=== PATIENT | male | born 1955 | race Caucasian/White ===

== ENCOUNTER 2022-04-21 11:14 | Emergency (ER) | payer MEDICARE, BC, SELFPAY ==
[2022-04-21 12:14] VITALS: BP 142/100; PULSE 87; RESP 20; TEMP 36.4; O2SAT 94; BMI 35.9
--- NOTE | 2022-04-21 13:14 | ED_ITS ---
HPI - General Adult General Time Seen by Provider: 13:15 Date Seen: 04/21/22 Chief complaint: Shortness of Breath/Dyspnea Stated complaint: Short of breath, covid 5 weeks ago Time Seen by Provider: 04/21/22 13:13 Source: patient and RN notes reviewed Mode of arrival: ambulatory Limitations: no limitations History of Present Illness HPI narrative: Patient is a 66-year-old male coming in with shortness of breath that has been progressive over the last 3 days. He tested positive for COVID in January. Since then he has noted more shortness of breath but is been worse recently. He is wheezing at night now. He does have chronic atrial fibrillation states when he checks his pulse it has been usually in the 60 to 80s. He is chronically anticoagulated for his atrial fibrillation with Eliquis 5 mg twice a day and states he has not missed doses. He admits that he is not really checked his pulse in the last 3 days when he has been feeling more short of breath. He notes that he has had really significant nasal/sinus congestion since COVID. He has been doing 2 Sudafed today otherwise he cannot deal with the congestion. He states he will start getting postnasal drainage. There has been no fevers or chills. No GI symptomatology. No chest pain. He has not noted increased edema, no complaints of increased abdominal distension. Related Data Home Medications Medication Instructions Recorded Confirmed amlodipine 5 mg tablet 5 mg PO DAILY 04/21/22 04/21/22 apixaban 5 mg tablet (Eliquis) 5 mg Q12H 04/21/22 atenolol 50 mg tablet 50 mg Q12H 04/21/22 hydrochlorothiazide 25 mg tablet 25 mg DAILY 04/21/22 irbesartan 300 mg tablet 300 mg 04/21/22 lorazepam 1 mg tablet 1 mg 04/21/22 omeprazole 20 mg capsule,delayed 20 mg BID 04/21/22 release terazosin 5 mg capsule 5 mg 04/21/22 zolpidem 10 mg tablet 10 mg 04/21/22 Previous Rx's Medication Instructions Recorded doxycycline monohydrate 100 mg 100 mg PO BID 10 days #20 tabs 04/21/22 tablet fluticasone propionate 50 1 spray intranasal BID #16 grams 04/21/22 mcg/actuation nasal spray,suspension prednisone 20 mg tablet 20 mg PO BID #10 tabs 04/21/22 Allergies Allergy/AdvReac Type Severity Reaction Status Date / Time No Known Drug Allergies Allergy Verified 04/21/22 12:34 Review of Systems Status of ROS: Reports: 10 or more systems reviewed and unremarkable except as noted in History and below [facility] Social History Smoking Status: Never smoker Do you use any of these nicotine containing products: None Second hand tobacco smoke exposure: No How often do you have a drink containing alcohol: 2-3 times a week How many standard drinks containing alcohol do you have on a typical day: 3 or 4 How often do you have six or more drinks on one occasion: Less than monthly AUDIT-C Alcohol total score: 5 Non-prescribed substance use: denies use service: No Exam Const: Vital Signs, click to edit/add: Vital Signs - 24 hr 04/21/22 12:14 04/21/22 13:42 04/21/22 14:46 Temperature 97.5 F L Pulse Rate [Right Pulse Oximeter] 87 130 H Respiratory Rate 20 16 Blood Pressure [Ri ght Upper Arm] 142/100 H Pulse Oximetry 94 93 94 Oxygen Delivery Me thod Room Air 04/21/22 14:00 04/21/22 13:35 04/21/22 14:00 Temperature Pulse Rate [Right Pulse Oximeter] 105 H 117 H 105 H Respiratory Rate 19 16 Blood Pressure [Ri ght Upper Arm] 109/79 131/95 H 109/79 Pulse Oximetry 96 94 93 Oxygen Delivery Me thod Room Air Room Air Room Air 04/21/22 13:35 Temperature Pulse Rate [Right Pulse Oximeter] 117 H Respiratory Rate 19 Blood Pressure [Ri ght Upper Arm] 131/95 H Pulse Oximetry 94 Oxygen Delivery Me thod Room Air Documenting provider has reviewed patient's vital signs: yes Common normals: no apparent distress, oriented x3, no limitations, healthy appearing, alert and well nourished General appearance: cooperative, comfortable and well kempt Nutritional appearance: obese HENMT: Common normals: normocephalic, head/scalp atraumatic, hearing grossly normal bilaterally, external ears normal, external nose normal, nasal mucous membranes and turbinates normal, moist oral mucous membranes, oropharynx normal, dentition normal and gingiva normal Head and scalp: normocephalic and atraumatic Nose: external nose normal and nasal mucous membranes and turbinates normal External ear: external ears normal Eye: Common normals: PERRL, EOMs intact bilaterally, conjunctivae normal and no scleral icterus Conjunctiva: conjunctiva(e) normal Pupil: PERRL Neck & C-Spine: Common normals: full ROM, no lymphadenopathy, supple, no meningeal signs, no JVD and thyroid normal Thyroid: thyroid normal Chest: Common normals: inspection of chest normal and palpation of chest normal Resp: Common normals: normal respiratory effort, no retractions, no use of accessory muscles and clear to auscultation bilaterally Auscultation: clear to auscultation bilaterally Cardio: Common normals: no JVD and no murmurs Rate: tachycardic Rhythm: abnormal rhythm irregularly irregular GI: Common normals: Normal to inspection, nondistended, normoactive bowel sounds present, soft to palpation, non-tender, no hepatosplenomegaly and no masses Palpation: soft and no hepatosplenomegaly Extremity: Other: Ambulated into the ED Bactrim 7 without any difficulty, no peripheral edema. Neuro: Common normals: oriented x3 Sensorium/orientation: alert Meningeal signs: no meningeal signs Speech: speech normal (Able speak in complete sentences) Psych: Appearance: well kempt Course Course Hospital Course: When patient ambulated from the [facility] back to his room, went into atrial fibrillation with RVR. We will see how he does as cm which is resting he is settling down. Did review with him that his Sudafed very well could be contributing to this and do think he needs to stop the Sudafed. With that said he is complaining about significant sinus congestion, will do sinus CT for him to see if there is any indication for treatment. Will do a full complement of labs, will do chest CT PE protocol. He is on Eliquis and did review with him that would make it very much more unlikely to have pulmonary emboli well on anticoagulants. Given his age, recent COVID, do not feel that we can rely on a D-dimer to singly rule in or out of pulmonary embolus and thus will be oblige to do the study. Will also see the parenchyma of his lungs with this study. If he continues to be in atrial fibrillation with RVR, will need to consider IV rate control medication. Reevaluation(s) Reevaluation #1: Reviewed with patient his CT findings that are suggesting developing pneumonia. Likewise he has got some left frontal sinus change. I think he would benefit from antibiotics and a course of prednisone. He is still jumping anywhere from 90 to max of 130 with his atrial fibrillation. He admits he has been on Sudafed from most 2 months. He is aware he needs to stop this. We discussed hospitalization for his atrial fibrillation with RVR. He would prefer to go home. He takes atenolol 50 mg twice a day. He has a pulse oximeter at home. He will take an extra dose of atenolol when he gets home and then continue with his b.i.d. dosing. He states he is comfortable monitoring his pulse at home and if it continues and shortness of breath is not improving, he will be re- evaluated. I do think this is a reasonable approach. Time: 15:47 Vital Signs Vital signs: Initial Vital Signs Temperature 97.5 F L 04/21/22 12:14 Temperature Source Temporal Artery Scan 04/21/22 12:14 Pulse Rate 87 04/21/22 12:14 Pulse Rhythm 04/21/22 12:14 Respiratory Rate 20 04/21/22 12:14 Blood Pressure 142/100 H 04/21/22 12:14 Blood Pressure Mean 114 04/21/22 12:14 Blood Pressure Position Sitting 04/21/22 12:14 Pulse Oximetry 94 04/21/22 12:14 Oxygen Delivery Method 04/21/22 12:14 Vital Signs Temperature 97.5 F L 04/21/22 12:14 Pulse Rate 87 04/21/22 12:14 Respiratory Rate 20 04/21/22 12:14 Blood Pressure 142/100 H 04/21/22 12:14 Pulse Oximetry 94 04/21/22 12:14 Oxygen Delivery Method 04/21/22 12:14 Temperature 97.5 F L 04/21/22 12:14 Pulse Rate 130 H 04/21/22 14:46 Respiratory Rate 16 04/21/22 14:46 Blood Pressure 109/79 04/21/22 14:00 Pulse Oximetry 94 04/21/22 14:46 Oxygen Delivery Method 04/21/22 14:00 Medical Decision Making Lab Data Lab results reviewed: Yes I reviewed the patient's lab results Labs: Lab Results 04/21/22 04/21/22 04/21/22 Range/Units 13:35 13:35 13:35 WBC 6.04 (4.50-11.00) K/uL RBC 4.13 L (4.30-5.90) m/uL Hgb 12.9 L (13.5-17.5) gm/dL Hct 39.4 (37.0-53.0) % MCV 95 (80-100) fL MCH 31 (26-34) pg MCHC 33 (32-36) gm/dL RDW Coeff of You 15.2 (11.5-15.5) % Plt Count 130 L (140-440) K/uL Neut % (Auto) 73.6 H (42.0-72.0) % Lymph % (Auto) 14.2 L (20-44) % [place] % (Auto) 10.1 (0.0-11.0) % Eos % (Auto) 1.2 (0.0-7.0) % Baso % (Auto) 0.7 (0.0-3.0) % Neut # (Auto) 4.40 (1.7-7.0) K/uL Lymph # (Auto) 0.90 (0.90-2.90) K/uL [place] # (Auto) 0.60 (0.00-0.90) K/UL Eos # (Auto) 0.07 (0.00-0.50) K/uL Baso # (Auto) 0.04 (0.00-0.30) K/uL Abs Immat Gran (auto) 0.01 (0.00-0.30) K/uL D-Dimer Quant (PE/DVT) 0.59 H (0.00-0.50) ug/ml VBG pH (7.32-7.43) VBG pCO2 (40-50) mmHG VBG pO2 (25-47) mmHG VBG HCO3 (21-28) mmol/L Sodium 136 (135-149) mmol/L Potassium 3.7 (3.6-5.1) mmol/L Chloride 103 (96-114) mmol/L Carbon Dioxide 23 (20-32) mmol/L BUN 16 (7-30) mg/dL Creatinine 0.8 (0.5-1.5) mg/dL Estimated Creat Clear 82.20 Estimated GFR 96 ml/min Glucose 113 (60-115) mg/dL Lactate (0.5-1.9) mmol/L Calcium 8.9 (8.4-10.6) mg/dL Magnesium 1.6 (1.5-2.6) mg/dL Total Bilirubin 1.1 (0.1-1.5) mg/dL AST 24 (12-35) U/L ALT 35 (4-50) U/L Alkaline Phosphatase 83 (40-150) U/L Troponin I < 0.01 L (0.01-0.04) ng/mL C-Reactive Protein 0.8 (0.5-1.0) mg/dL NT-Pro-B Natriuret Pep 1400 H (0-125) PG/mL Total Protein 6.8 (6.0-8.3) g/dL Albumin 4.1 (3.3-5.0) g/dL TSH (0.270-4.200) uIU/mL 04/21/22 04/21/22 Range/Units 13:35 13:35 WBC (4.50-11.00) K/uL RBC (4.30-5.90) m/uL Hgb (13.5-17.5) gm/dL Hct (37.0-53.0) % MCV (80-100) fL MCH (26-34) pg MCHC (32-36) gm/dL RDW Coeff of You (11.5-15.5) % Plt Count (140-440) K/uL Neut % (Auto) (42.0-72.0) % Lymph % (Auto) (20-44) % [place] % (Auto) (0.0-11.0) % Eos % (Auto) (0.0-7.0) % Baso % (Auto) (0.0-3.0) % Neut # (Auto) (1.7-7.0) K/uL Lymph # (Auto) (0.90-2.90) K/uL [place] # (Auto) (0.00-0.90) K/UL Eos # (Auto) (0.00-0.50) K/uL Baso # (Auto) (0.00-0.30) K/uL Abs Immat Gran (auto) (0.00-0.30) K/uL D-Dimer Quant (PE/DVT) (0.00-0.50) ug/ml VBG pH 7.434 H (7.32-7.43) VBG pCO2 39 L (40-50) mmHG VBG pO2 74.9 H (25-47) mmHG VBG HCO3 26 (21-28) mmol/L Sodium (135-149) mmol/L Potassium (3.6-5.1) mmol/L Chloride (96-114) mmol/L Carbon Dioxide (20-32) mmol/L BUN (7-30) mg/dL Creatinine (0.5-1.5) mg/dL Estimated Creat Clear Estimated GFR ml/min Glucose (60-115) mg/dL Lactate 1.1 (0.5-1.9) mmol/L Calcium (8.4-10.6) mg/dL Magnesium (1.5-2.6) mg/dL Total Bilirubin (0.1-1.5) mg/dL AST (12-35) U/L ALT (4-50) U/L Alkaline Phosphatase (40-150) U/L Troponin I (0.01-0.04) ng/mL C-Reactive Protein (0.5-1.0) mg/dL NT-Pro-B Natriuret Pep (0-125) PG/mL Total Protein (6.0-8.3) g/dL Albumin (3.3-5.0) g/dL TSH 1.870 (0.270-4.200) uIU/mL Imaging Data CT scan - chest: Attestation: I have reviewed the pertinent imaging results. Radiologist's impression: Patient: LOUIE CONNOR Facility:?[facility] Patient ID:?[id number] Site Patient ID:?[id number]. Site :?[id number] Study:?CT Chest Angio W/ 95CC ISOVUE-370 PE PROTOCOL-04/21/2022 2:46:56 PM Ordering Physician:Nelida Louis Final Report: Indication: Shortness of breath, recent barrera virus infection, wheezing Technique: Volumetric multidetector CT images of the chest were obtained after the administration of IV contrast. 95 cc Isovue 370 low osmolar intravenous contrast Comparison: None available. Findings: The thoracic inlet and thyroid gland are unremarkable. The thoracic aorta is nonaneurysmal. There is no central filling defect to suggest pulmonary embolism. There are enlarged mediastinal and hilar lymph nodes commensurate with reactive changes. There is mild moderate central bronchial thickening and mucoid impaction of the lower lobe bronchi. There are bibasilar pleural effusions with moderate interlobular septal thickening with basilar atelectasis and airspace opacities likely representing superimposed infiltrates. There is no evidence of pulmonary mass or suspicious pulmonary nodule. The partially visualized upper abdomen demonstrates mild hepatic enlargement and calcified gallstones within the gallbladder fossa. The thoracic vertebral body heights are grossly maintained with mild straightening of the normal thoracic kyphosis. There is no significant spondylolisthesis or displaced fractures. Impression: Mild to moderate central bronchial thickening with mucoid impaction of the lower lobe bronchi with bibasilar effusions and interlobular septal thickening commensurate with pulmonary edema with minimal basilar airspace opacities likely representing infiltrates. No evidence of pulmonary embolus. Please note that all CT scans at this facility use dose modulation, iterative reconstruction, and/or weight-based dosing when appropriate to reduce radiation dose to as low as reasonably achievable. Dictated by Alexis Greene MD @ 04/21/2022 3:34:32 PM (Electronic Signature) CT sinus: Attestation: I have reviewed the pertinent imaging results. Radiologist's impression: Patient: LOUIE CONNOR Facility:?[facility] Patient ID:?[id number] Site Patient ID:?[id number] Site :?[id number] Study:?CT Sinus W/O-04/21/2022 2:43:06 PM Ordering Physician:?Ernst Louis Final Report: INDICATION: Chronic post COVID congestion. TECHNIQUE: CT sinus without contrast. COMPARISON: None. FINDINGS: Paranasal sinuses: Minimal fluid or mucosal thickening in the left frontal sinus. Remainder of the paranasal sinuses are clear. Left mastoid air cell effusion also present. The ostiomeatal units are patent. The fovea ethmoidalis and orbital marquis are intact. The nasal septum is midline and intact. The nasal turbinates are normal. Orbits and globes: Unremarkable. Visualized intracranial contents: Unremarkable. Soft tissues: Unremarkable. IMPRESSION: Minimal signs of inflammation in the left frontal sinus. Remainder of the paranasal sinuses are clear. An effusion is also present in the left mastoid air cells. Please note that all CT scans at this facility use dose modulation, iterative reconstruction, and/or weight-based dosing when appropriate to reduce radiation dose to as low as reasonably achievable. Dictated by Ye Allen MD @ 04/21/2022 3:35:54 PM ECG Data Attestation: I personally reviewed and interpreted this ECG as follows: (Atrial fibrillation with rapid ventricular response, 110 beats per minute. No definitive ischemia seen. QT corrected 511 milliseconds) Prior ECG tracings: not available for review Critical Care Time Critical Care Time Critical Care Time: No Discharge Plan Discharge Clinical Impression: Sinusitis, acute frontal, Community acquired pneumonia, Chronic atrial fibrillation with rapid ventricular response Condition: Stable Instructions: A-fib (Atrial Fibrillation) (ED), Sinusitis (ED), Community Acquired Pneumonia (ED) Additional Instructions: Start doxycycline and take as prescribed. Take prednisone as well, take with food to protect her stomach. You absolutely need to stop the Sudafed, can be contributing to your rapid rhythm with her atrial fibrillation. Start Flonase and can use scheduled for about 2 weeks, can see after that if you still need it. Monitor pulse rate, if it is not improving over the next few days with cessation of the Sudafed, follow up in clinic or back in the ER if it is associated with shortness of breath. You can take an extra dose of atenolol today when you get home. Activity Level: Activity as Tolerated Prescriptions: New doxycycline monohydrate 100 mg tablet 100 mg PO BID 10 Days Qty: 20 0RF prednisone 20 mg tablet 20 mg PO BID Qty: 10 0RF fluticasone propionate 50 mcg/actuation spray,suspension 1 spray intranasal BID Qty: 16 1RF Rx Instructions: administer into each nostril No Action Eliquis 5 mg tablet 5 mg Q12H Label Comments: TAKE ONE TABLET BY MOUTH TWICE DAILY amlodipine 5 mg tablet 5 mg PO DAILY Label Comments: TAKE ONE TABLET BY MOUTH ONE TIME DAILY atenolol 50 mg tablet 50 mg Q12H Label Comments: TAKE ONE TABLET BY MOUTH TWICE DAILY hydrochlorothiazide 25 mg tablet 25 mg DAILY Label Comments: TAKE ONE TABLET BY MOUTH ONE TIME DAILY irbesartan 300 mg tablet 300 mg Label Comments: TAKE ONE TABLET BY MOUTH ONE TIME DAILY lorazepam 1 mg tablet 1 mg Label Comments: Take 1 Tablet (1 mg) by mouth 2 times daily if needed for Anxiety or Sleep. omeprazole 20 mg capsule,delayed release(DR/EC) 20 mg BID Label Comments: TAKE TWO CAPSULE BY MOUTH TWICE DAILY BEFORE MEALS terazosin 5 mg capsule 5 mg Label Comments: TAKE TWO CAPSULE BY MOUTH DAILY AT BEDTIME zolpidem 10 mg tablet 10 mg Label Comments: TAKE ONE TABLET BY MOUTH ONE TIME DAILY AT BEDTIME Follow Up/Referrals: Ebenezer Powell MD [Primary Care Provider] - Stand Alone Forms: [facility] Inst[facility]
--- NOTE | 2022-04-21 13:32 | CRLHL7_ITS ---
For Patients: As a result of the Cures Act, medical imaging exams and procedure reports are released immediately into your electronic medical record. You may view this report before your referring provider. If you have questions, please contact your health care provider. Indication: Shortness of breath, recent barrera virus infection, wheezing Technique: Volumetric multidetector CT images of the chest were obtained after the administration of IV contrast. 95 cc Isovue 370 low osmolar intravenous contrast Comparison: None available. Findings: The thoracic inlet and thyroid gland are unremarkable. The thoracic aorta is nonaneurysmal. There is no central filling defect to suggest pulmonary embolism. There are enlarged mediastinal and hilar lymph nodes commensurate with reactive changes. There is mild moderate central bronchial thickening and mucoid impaction of the lower lobe bronchi. There are bibasilar pleural effusions with moderate interlobular septal thickening with basilar atelectasis and airspace opacities likely representing superimposed infiltrates. There is no evidence of pulmonary mass or suspicious pulmonary nodule. The partially visualized upper abdomen demonstrates mild hepatic enlargement and calcified gallstones within the gallbladder fossa. The thoracic vertebral body heights are grossly maintained with mild straightening of the normal thoracic kyphosis. There is no significant spondylolisthesis or displaced fractures. Impression: Mild to moderate central bronchial thickening with mucoid impaction of the lower lobe bronchi with bibasilar effusions and interlobular septal thickening commensurate with pulmonary edema with minimal basilar airspace opacities likely representing infiltrates. No evidence of pulmonary embolus. Please note that all CT scans at this facility use dose modulation, iterative reconstruction, and/or weight-based dosing when appropriate to reduce radiation dose to as low as reasonably achievable. Dictated by Alexis Greene MD @ 04/21/2022 3:34:32 PM (Electronically Signed)
--- NOTE | 2022-04-21 13:32 | CRLHL7_ITS ---
For Patients: As a result of the Century Cures Act, medical imaging exams and procedure reports are released immediately into your electronic medical record. You may view this report before your referring provider. If you have questions, please contact your health care provider. INDICATION: Chronic post COVID congestion. TECHNIQUE: CT sinus without contrast. COMPARISON: None. FINDINGS: Paranasal sinuses: Minimal fluid or mucosal thickening in the left frontal sinus. Remainder of the paranasal sinuses are clear. Left mastoid air cell effusion also present. The ostiomeatal units are patent. The fovea ethmoidalis and orbital marquis are intact. The nasal septum is midline and intact. The nasal turbinates are normal. Orbits and globes: Unremarkable. Visualized intracranial contents: Unremarkable. Soft tissues: Unremarkable. IMPRESSION: Minimal signs of inflammation in the left frontal sinus. Remainder of the paranasal sinuses are clear. An effusion is also present in the left mastoid air cells. Please note that all CT scans at this facility use dose modulation, iterative reconstruction, and/or weight-based dosing when appropriate to reduce radiation dose to as low as reasonably achievable. Dictated by Ye Allen MD @ 04/21/2022 3:35:54 PM (Electronically Signed)
[2022-04-21 13:35] VITALS: BP 131/95; PULSE 117; RESP 19; O2SAT 94
[2022-04-21 13:42] VITALS: O2SAT 93
[2022-04-21 13:42] LABS: HCO3 VBG 26 mmol/L (21-28); Lactate* 1.1 mmol/L (0.5-1.9); PCO2 VBG 39 mmHG (40-50); PO2 VBG 74.9 mmHG (25-47); pH VBG 7.434 (7.32-7.43)
[2022-04-21 13:45] LABS: Basophils Absolute Auto 0.04 K/uL (0.00-0.30); Basophils Percent Auto 0.7 % (0.0-3.0); Eosinophils Absolute Auto 0.07 K/uL (0.00-0.50); Eosinophils Percent Auto 1.2 % (0.0-7.0); Hematocrit 39.4 % (37.0-53.0); Hemoglobin* 12.9 gm/dL (13.5-17.5); Immature Granulocytes Abs Auto 0.01 K/uL (0.00-0.30); Lymphocytes Percent Auto 14.2 % (20-44); Mean Corpuscular HGB Conc 33 gm/dL (32-36); Mean Corpuscular Hemoglobin 31 pg (26-34); Mean Corpuscular Volume 95 fL (80-100); Monocytes Percent Auto 10.1 % (0.0-11.0); Neutrophils Percent Auto 73.6 % (42.0-72.0); Platelet Count* 130 K/uL (140-440); RDW Coefficient of Variation % 15.2 % (11.5-15.5); Red Blood Count 4.13 m/uL (4.30-5.90); White Blood Count* 6.04 K/uL (4.50-11.00)
[2022-04-21 13:47] LABS: Slide Review Reflex No
[2022-04-21 14:00] VITALS: BP 109/79; PULSE 105; RESP 16; O2SAT 93; O2SAT 96
[2022-04-21 14:02] LABS: Albumin* 4.1 g/dL (3.3-5.0); Chloride* 103 mmol/L (96-114); Sodium* 136 mmol/L (135-149)
[2022-04-21 14:03] LABS: Potassium* 3.7 mmol/L (3.6-5.1)
[2022-04-21 14:05] LABS: Bilirubin Total* 1.1 mg/dL (0.1-1.5); Creatinine* 0.8 mg/dL (0.5-1.5); Estimated Glomerular Filt Rate 96 ml/min
[2022-04-21 14:06] LABS: Alanine Aminotransferase* 35 U/L (4-50); Alkaline Phosphatase* 83 U/L (40-150); Aspartate Amino Transferase* 24 U/L (12-35); Blood Urea Nitrogen* 16 mg/dL (7-30); Calcium* 8.9 mg/dL (8.4-10.6); Carbon Dioxide* 23 mmol/L (20-32); Glucose* 113 mg/dL (60-115); Magnesium* 1.6 mg/dL (1.5-2.6); Total Protein* 6.8 g/dL (6.0-8.3)
[2022-04-21 14:09] LABS: C Reactive Protein* 0.8 mg/dL (0.5-1.0)
[2022-04-21 14:15] LABS: NT Pro B Type NatriureticPept* 1400 PG/mL (0-125)
[2022-04-21 14:19] LABS: Troponin I* < 0.01 ng/mL (0.01-0.04)
[2022-04-21 14:25] LABS: D Dimer Quantitative* 0.59 ug/ml (0.00-0.50)
[2022-04-21 14:46] VITALS: PULSE 130; RESP 16; O2SAT 94
[2022-04-21 16:15] VITALS: BP 127/91; PULSE 109; RESP 18; O2SAT 96
--- OUTSIDE RECORDS SUMMARY | 2022-04-25 13:15 | XMS_ITS | Clinical Summary ---
:1955 Author Organization [facility] [place] [address] Care Team Providers Name Role Phone Ebenezer Powell MD Primary Care Provider [phone] Allergies Active Allergy Reactions Severity Noted Date Comments Atorvastatin Other - Describe In ankle pa in and Comment Field swelling Lisinopril Throat High 10/10/2007 Swelling/Closing, Angioedema Sulfamethoxazole-Trimeth GI Upset Medium 08/21/2014 A t wo week course oprim ripped up my stomach. Medications Medication Sig Dispensed Refills Start End Status Date Date MULTIVITAMIN TAB take 1 tablet by 0 10/10/19 Active oral route once 08 daily with food medication order ComforTone stool 0 08/16/19 Active composerIndications: softener/laxativ 15 Constipation e - take 2 daily as needed for constipation albuterol HFA Inhale 1-2 Puffs 1 Each 1 09/09/19 Active (PRO-AIR; VENTOLIN; by mouth every 4 21 PROVENTIL) 90 hours if needed. mcg/actuation inhalerIndications: Moderate persistent asthma without complication fluticasone (50 mcg Inhale 2 Sprays 16 g 11 09/17/19 Active per actuation) nasal into both 21 solution nostrils once (FLONASE)Indications: daily if needed Acute non-recurrent for Rhinitis. maxillary sinusitis glucosamine-chondroiti Take 1 Capsule 0 09/17/19 Active n, 500-400 mg, by mouth once 21 (COSAMIN DS 500/400) daily. 500-400 mg capIndications: Hip pain, right, Neck pain, chronic [id number]-Fish Take 2 Capsules 0 09/17/19 Active Oil (FISH OIL) 1,000 by mouth once 21 mg (120 mg-180 mg) daily. capIndications: Neck pain, chronic hydrocortisone 1 % Apply topically 0 10/22/19 Active creamIndications: to affected 21 Encounter for area(s) 4 times cardioversion daily if needed procedure for Other (Specify) (Apply as needed to affected skin irritation. Send home with patient.). hydroCHLOROthiazide Take 1 Tablet 90 tablet. 3 09/17/19 Active (HCTZ) 25 mg (25 mg) by mouth 22 tabletIndications: once daily. Essential hypertension hyoscyamine (LEVSIN) Take 1 Tablet 360 tablet. 3 09/17/19 Active 0.125 mg (0.125 mg) by 22 tabletIndications: mouth every 4 Other irritable bowel hours if needed syndrome for Colic. irbesartan (Avapro) Take 1 Tablet 90 Tablet 3 09/17/19 Active 300 mg (300 mg) by 22 tabletIndications: mouth once Essential hypertension daily. tadalafiL (CIALIS) 10 Take 1 Tablet 30 tablet. 5 09/17/19 Active mg tabletIndications: (10 mg) by mouth 22 Other male erectile once daily if dysfunction needed (Erectile dysfunction). Take 30 minutes before sexual activity. terazosin (HYTRIN) 5 Take 2 Capsules 180 Capsule 3 09/17/19 Active mg capsuleIndications: (10 mg) by mouth 22 Essential at bedtime. hypertension, Chronic prostatitis zolpidem (AMBIEN) 10 Take 1 Tablet 90 Tablet 3 09/17/19 Active mg tabletIndications: (10 mg) by mouth 22 Other insomnia at bedtime. amLODIPine (NORVASC) 5 Take 1 Tablet (5 90 Tablet 3 09/17/19 Active mg tabletIndications: mg) by mouth 22 Essential hypertension once daily. apixaban (Eliquis) 5 Take 1 Tablet (5 180 Tablet 3 09/17/19 Active mg tabletIndications: mg) by mouth 2 22 Persistent atrial times daily. fibrillation (HC) atenoloL (TENORMIN) 50 Take 1 Tablet 180 tablet. 3 09/17/19 Active mg tabletIndications: (50 mg) by mouth 22 Essential 2 times daily. hypertension, Persistent atrial fibrillation (HC) ondansetron (ZOFRAN) 4 Take 1-2 Tablets 30 tablet. 3 09/17/19 Active mg tabletIndications: (4-8 mg) by 22 Nausea mouth every 8 hours if needed for Nausea/Vomiting. traMADoL (ULTRAM) 50 TAKE ONE TABLET 60 Tablet 0 09/23/19 Active mg tabletIndications: BY MOUTH EVERY 22 Primary osteoarthritis SIX HOURS of right knee NEEDED FOR PAIN omeprazole (PRILOSEC) Take 2 Capsules 360 capsule. 3 10/21/19 Active 20 mg Delayed-Release (40 mg) by mouth 22 capsuleIndications: 2 times daily Gastroesophageal before meals. reflux disease with esophagitis without hemorrhage, Bradley's esophagus with dysplasia HYDROcodone-acetaminop Take 1 Tablet by 36 Tablet 0 12/04/19 Active hen (NORCO) 5-325 mg mouth every 4 22 per tabletIndications: hours if needed Primary osteoarthritis for Pain. Max of right knee acetaminophen dose: 4000 mg in 24 hrs. LORazepam (ATIVAN) 1 Take 1 Tablet (1 60 Tablet 5 04/06/20 Active mg tabletIndications: mg) by mouth 2 Anxiety times daily if needed for Anxiety or Sleep. LORazepam (ATIVAN) 1 Take 1 Tablet (1 60 Tablet 5 09/17/19/ mg tabletIndications: mg) by mouth 2021 Anxiety once daily if needed for Anxiety or Sleep. 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 Colon polyps 09/08/2014 Overview: No polyps on 08/29/14 colonoscopy Repeat in 3 years Varicose veins 06/21/2014 Diverticulosis 06/21/2014 BPH (benign prostatic hypertrophy) with urinary obstru ction 05/25/2013 Insomnia 04/26/2013 Impaired fasting glucose 02/25/2009 Esophageal reflux 10/10/2007 Overview: EGD 12/2010 hiatal hernia Unspecified essential hypertension Pure hypercholesterolemia Obesity, unspecified Encounters Date Type Specialty Care Team Description 04/06/2022 RefEbenezer Nichole MD Re fill Request (Lorazepam) 02/22/2022 Refill Ebenezer Powell MD Re fill Request (AMLODIPINE BESYLATE ORAL T ABLET 5MG ) from Last 3 Months Immunizations Name Administration Dates Next Due COVID-19 vaccine (DealTraction 07/01/2021, 10/07/2020, 30mcg/0.3mL) PF, MDV Influenza, High-dose Inactivated 05/09/2016 Influenza, High-dose Quadrivalent 05/26/2021 Inactivated Influenza, IIV3 (Age >=3 years) 04/12/2013, 04/29/2010, 12/10/2005 Influenza, IIV4 06/08/2017, 06/21/2014 Influenza, IIV4 (=>6mos) MDV 05/27/2016 Pneumococcal conj 13-Valent (Prevnar 13) 09/08/2020, 019 Td (Age >=7 Years) 11/22/2018 Tdap 10/10/2007 Zoster (Zostavax-ZVL, live) 06/21/2014, 07/11/2012 Family History Medical History Relation Name Comments Hypertension Brother 1 Other Brother 2 obese Alcohol/Drug Father Cancer Father lip CA from TOB Hyperlipidemia Father Other Father CO at 55 yo Arthritis Mother Cancer-colon Mother dx at 85 Relation Name Status Comments Brother 1 Brother 2 Father (Age 56) Mother Alive Social History Tobacco Use Types Packs/Day Years Used Date Never Smoker Smokeless Tobacco: Never Used Tobacco Cessation: Counseling Given: Yes Alcohol Use Standard Drinks/Week Comments Yes 3 (1 standard drink = 0.6 oz pure alcoho l) 12 beers a month Sex Assigned at Date Recorded Not on file Obstetrics History Last Filed Vital Signs Vital Sign Reading Time Taken Comments Blood Pressure 127/81 12/03/2021 10:06 AM CDT Pulse 80 12/03/2021 10:06 AM CDT Temperature 36.6 ??C (97.9 ??F) 12/03/2021 10:06 AM CDT Respiratory Rate 18 10/21/2020 2:29 PM CDT Oxygen Saturation 98% 12/03/2021 10:06 AM CDT Inhaled Oxygen Concentration - - Weight 126.9 kg (279 lb 12.8 oz) 12/03/2021 10:06 AM sh oes on CDT Height 184.2 cm (6' 0.5) 10/20/2021 10:59 AM CDT Body Mass Index 37.43 10/20/2021 10:59 AM CDT Plan of Treatment Health Maintenance Due Date Last Done Comments Zoster (shingles) series for age 0208/16/2014 06/21/2014, 07/2012 50+ (2 of 3) Colonoscopy through age 75 08/29/2019 08/29/2014, 1, 12/14/2010 COVID-19 vaccine series (4 - 08/26/2021 07/01/2021, 021, Booster for Pfizer series) 09/16/2020 Pneumococcal series for age 65+ (2 09/08/2021 09/08/2020, 0 11/22/2018 - PPSV23 or PCV20) Influenza for age 65+ 03/11/2022 05/26/2021, 06/08/2017, 05/27/2016, Additional history exists Medicare Wellness for age 65+ 09/16/2022 09/16/2021, 2020, 11/22/2018 Depression screening for age 12+ 09/17/2022 09/17/2021, 03/2022, 09/16/2021, Additional history exists BMI (ht and wt on same day) for 10/20/2022 10/20/2021, 03/0 03/2022, age 18+ 08/05/2021, Additional history exists Lipids for age 45-75 09/16/2026 09/16/2021, 08/25/2020, 12/13/2019, Additional history exists Tetanus booster 11/22/2028 11/22/2018, 10/10/2007 Tdap Completed 10/10/2007 Hepatitis C screening for age Completed 08/01/2014 [age] Results Not on filefrom Last 3 Months Insurance Payer Benefit Plan / Subscriber ID Effective Dates Phone Addre ss Type Group MEDICARE PART A MEDICARE PART A [id number] 2018-Presharinder ATTN: CLAIMS - HB USE ONLY HB ONLY t [address] [place] [address] MEDICARE PART B MEDICARE PART B [id number] 2018-Presen ATTN: CLAIMS - HB USE ONLY HB ONLY t [address] [place] [address] MEDICA MEDICA CHOICE [id number] 2013-Presen [address] [address] [place] [address] MEDICARE - PB MEDICARE PB [id number] 2018-Presen ATTN : CLAIMS USE ONLY ONLY t [address] [place] [address] BLUE CROSS BLUE CROSS OF [id number] 2018-Presen [address] [place] [address] Alex Barraza Personal/Family Self 1955 [id number] [phone] [place] [employer] [id number] Advance Directives Latest Code Status on File Code Status Date Activated Date Inactivated Comments Full Code 10/21/2020 12:01 PM 10/21/2020 4:58 PM Code Status Discussion: Not Discussed Care Teams Fruit Trimmer Relationship Specialty Start Date End Date Ebenezer Powell MD PCP - General 03/25/[address] [place] [address]
== END 2022-04-21 16:15 | disposition home or self-care (01) ==
PROVIDERS: Emergency Provider Family Medicine; PCP Family Medicine
DX: J18.9 Pneumonia, unspecified organism (principal); I48.20 Chronic atrial fibrillation, unspecified; J32.9 Chronic sinusitis, unspecified
CPT/HCPCS: 36415; 70486; 71260; 80053; 82803; 83605; 83735; 83880; 84443; 84484; 85025; 85379; 86140; 93005; 94761; 99284; 99285; Q9967

== ENCOUNTER 2022-07-26 11:56 | Inpatient (IN) | payer MEDICARE, BC, SELFPAY ==
[2022-07-26] VITALS (35 sets, daily range): BP systolic 134–160; BP diastolic 87–143; PULSE 78–134; RESP 16–22; TEMP 36.5–36.7; O2SAT 89–96; BMI 38.8; BMI 40.1
--- NOTE | 2022-07-26 12:27 | ED.SOB ---
HPI - SOB/Dyspnea General Time Seen by Provider: 12:27 Date Seen: 07/26/22 Chief Complaint: Shortness of Breath/Dyspnea Stated Complaint: shortness of breath Time Seen by Provider: 07/26/22 12:27 Source: patient, RN notes reviewed and old records reviewed Mode of arrival: ambulatory Limitations: no limitations History of Present Illness HPI Narrative: Lincoln is a very pleasant 66-year-old gentleman with history of atrial fibrillation on anticoagulation, hypertension, obesity who comes to the emergency room for evaluation regarding continuing shortness of breath especially with exertion since having COVID in February. Patient notes that he has had multiple rounds of antibiotics in the treatment of pneumonia as well as sinusitis with variable effect. He notes he now is getting shortness of breath with any sort of activity. He does state that his heart rate is elevated and he usually blamed this on Sudafed but he has not taken any Sudafed today but did have some Excedrin. He denies chest pain. He has had intermittent cough and occasional sore throats in the past couple months. He denies having any fevers. He does note that he has sinus pressure today. He states that in the past he has been treated with pneumonia with antibiotics it at which time he improved. The following time he was treated with antibiotics for sinusitis but did not get better and when he was seen in June by his primary MD he did not receive any medication. He denies calf tenderness or increasing lower extremity edema. He notes that he has had wheezing since having COVID in February. He did trial some Advair which belongs to his and states he felt it made him a little bit better. He has not had any vomiting. He did have some diarrhea but that has since resolved. Related Data Home Medications Medication Instructions Recorded Confirmed amlodipine 5 mg tablet 5 mg PO DAILY 04/21/22 07/26/22 apixaban 5 mg tablet (Eliquis) 5 mg PO BID 04/21/22 07/26/22 atenolol 50 mg tablet 50 mg PO BID 04/21/22 07/26/22 hydrochlorothiazide 25 mg tablet 25 mg PO DAILY 04/21/22 07/26/22 irbesartan 300 mg tablet 300 mg PO DAILY 04/21/22 07/26/22 lorazepam 1 mg tablet 1 mg PO BID PRN 04/21/22 07/26/22 omeprazole 20 mg capsule,delayed 20 mg PO BID 10/12/22 01/16/23 release terazosin 5 mg capsule 10 mg PO HS 04/21/22 07/26/22 zolpidem 10 mg tablet 10 mg PO HS 04/21/22 07/26/22 fluticasone propionate 50 1 spray intranasal DAILY PRN 07/26/22 07/26/22 mcg/actuation nasal spray,suspension montelukast 10 mg tablet 10 mg PO HS 07/26/22 07/26/22 Allergies Allergy/AdvReac Type Severity Reaction Status Date / Time atorvastatin Allergy Verified 07/26/22 15:04 lisinopril Allergy Verified 07/26/22 15:04 Review of Systems Status of ROS: Reports: 10 or more systems reviewed and unremarkable except as noted in History and below Const: Denies: fever or chills Eyes: Denies: change in vision ENMT: Reports: throat pain (Occasionally not today); Denies: neck pain or difficulty swallowing Cardio: Reports: shortness of breath with exertion and shortness of breath when lying down; Denies: chest pain, palpitations, edema, swelling of feet/ankles or lightheadedness Resp: Reports: shortness of breath GI: Denies: abdominal pain, nausea, vomiting or difficulty swallowing : Denies: painful urination or urinary frequency Musculo: Denies: neck pain Integ/Breast: Denies: rash Neuro: Denies: headache PFSH PFSH Medical History Atrial flutter with rapid ventricular response Cardiac arrhythmia Elevated cholesterol GERD (gastroesophageal reflux disease) Hypertension Surgical History Status post right hip replacement (11/05/21) Social History Smoking Status: Never smoker Do you use any of these nicotine containing products: None Second hand tobacco smoke exposure: No How often do you have a drink containing alcohol: 2-3 times a week How many standard drinks containing alcohol do you have on a typical day: 3 or 4 How often do you have six or more drinks on one occasion: Less than monthly AUDIT-C Alcohol total score: 5 Non-prescribed substance use: denies use service: No Exam Narrative: Exam Narrative: Patient is alert and oriented. Nontoxic in appearance. He is lying in a semi recumbent position in room 3. Eyes are clear and oral cavity with moist mucous membranes. Heart with a tachycardic rate an abnormally abnormal rhythm. Abdomen is obese soft nontender. Lower extremities with scant peripheral edema. No calf tenderness. Const: Vital Signs, click to edit/add: Vital Signs - 24 hr 07/26/22 12:18 07/26/22 12:33 07/26/22 12:39 Temperature 97.7 F 97.7 F Pulse Rate 86 Pulse Rate [Femora l] 90 Pulse Rate [Right Pulse Oximeter] 90 Respiratory Rate 22 20 Blood Pressure Blood Pressure [Ri ght Upper Arm] 134/122 H 134/122 H Pulse Oximetry 93 92 93 Oxygen Delivery Me thod Room Air Room Air 07/26/22 12:44 07/26/22 12:45 07/26/22 13:00 Temperature Pulse Rate 114 H 89 Pulse Rate [Femora l] Pulse Rate [Right Pulse Oximeter] Respiratory Rate Blood Pressure Blood Pressure [Ri ght Upper Arm] Pulse Oximetry 92 93 93 Oxygen Delivery Me thod 07/26/22 13:02 07/26/22 13:15 07/26/22 13:30 Temperature Pulse Rate 84 87 81 Pulse Rate [Femora l] Pulse Rate [Right Pulse Oximeter] Respiratory Rate Blood Pressure 142/90 H Blood Pressure [Ri ght Upper Arm] Pulse Oximetry 94 90 93 Oxygen Delivery Me thod 07/26/22 13:32 07/26/22 13:45 07/26/22 14:00 Temperature Pulse Rate 92 98 100 Pulse Rate [Femora l] Pulse Rate [Right Pulse Oximeter] Respiratory Rate Blood Pressure 147/113 H Blood Pressure [Ri ght Upper Arm] Pulse Oximetry 92 93 92 Oxygen Delivery Me thod 07/26/22 14:02 07/26/22 14:15 07/26/22 14:30 Temperature Pulse Rate 98 84 126 H Pulse Rate [Femora l] Pulse Rate [Right Pulse Oximeter] Respiratory Rate Blood Pressure 144/87 H Blood Pressure [Ri ght Upper Arm] Pulse Oximetry 94 92 90 Oxygen Delivery Me thod 07/26/22 14:32 07/26/22 14:45 07/26/22 15:04 Temperature Pulse Rate 99 99 134 H Pulse Rate [Femora l] Pulse Rate [Right Pulse Oximeter] Respiratory Rate Blood Pressure 137/115 H Blood Pressure [Ri ght Upper Arm] Pulse Oximetry 90 92 90 Oxygen Delivery Me thod 07/26/22 15:05 07/26/22 15:15 07/26/22 15:30 Temperature Pulse Rate 110 H 88 89 Pulse Rate [Femora l] Pulse Rate [Right Pulse Oximeter] Respiratory Rate Blood Pressure 160/143 H Blood Pressure [Ri ght Upper Arm] Pulse Oximetry 92 94 94 Oxygen Delivery Me thod 07/26/22 15:32 07/26/22 15:45 07/26/22 16:00 Temperature Pulse Rate 78 88 99 Pulse Rate [Femora l] Pulse Rate [Right Pulse Oximeter] Respiratory Rate Blood Pressure 139/110 H Blood Pressure [Ri ght Upper Arm] Pulse Oximetry 96 89 90 Oxygen Delivery Me thod 07/26/22 16:02 07/26/22 16:15 07/26/22 16:30 Temperature Pulse Rate 98 96 95 Pulse Rate [Femora l] Pulse Rate [Right Pulse Oximeter] Respiratory Rate Blood Pressure 146/96 H Blood Pressure [Ri ght Upper Arm] Pulse Oximetry 94 93 93 Oxygen Delivery Me thod 07/26/22 16:32 07/26/22 16:45 07/26/22 17:00 Temperature Pulse Rate 103 H 98 86 Pulse Rate [Femora l] Pulse Rate [Right Pulse Oximeter] Respiratory Rate Blood Pressure 153/89 H Blood Pressure [Ri ght Upper Arm] Pulse Oximetry 93 93 93 Oxygen Delivery Me thod 07/26/22 17:02 07/26/22 17:03 Temperature Pulse Rate 90 78 Pulse Rate [Femora l] Pulse Rate [Right Pulse Oximeter] Respiratory Rate Blood Pressure 141/108 H Blood Pressure [Ri ght Upper Arm] Pulse Oximetry 94 95 Oxygen Delivery Me thod Documenting provider has reviewed patient's vital signs: yes Course Vital Signs Vital signs: Initial Vital Signs Temperature 97.7 F 07/26/22 12:18 Temperature Source Temporal Artery Scan 07/26/22 12:18 Pulse Rate 90 07/26/22 12:18 Pulse Rhythm 07/26/22 12:18 Respiratory Rate 22 07/26/22 12:18 Blood Pressure 134/122 H 07/26/22 12:18 Blood Pressure Mean 126 07/26/22 12:18 Pulse Oximetry 93 07/26/22 12:18 Oxygen Delivery Method 07/26/22 12:18 Vital Signs Temperature 97.7 F 07/26/22 12:18 Pulse Rate 90 07/26/22 12:18 Respiratory Rate 22 07/26/22 12:18 Blood Pressure 134/122 H 07/26/22 12:18 Pulse Oximetry 93 07/26/22 12:18 Oxygen Delivery Method 07/26/22 12:18 Temperature 97.7 F 07/26/22 12:33 Pulse Rate 78 07/26/22 17:03 Respiratory Rate 20 07/26/22 12:33 Blood Pressure 141/108 H 07/26/22 17:02 Pulse Oximetry 95 07/26/22 17:03 Oxygen Delivery Method 07/26/22 12:33 MDM - SOB/Dyspnea MDM Narrative Medical decision making narrative: 1. Congestive heart failure-patient is noted to have bilateral pleural effusion on CT. ProBNP is it 1900 which is an increase from April at 1420. Patient given Lasix 40 mg IV. Patient will be admitted to the floor of our hospital for diuresis and echocardiogram. 2. AFib with RVR-likely secondary to 1. Currently on atenolol 150 mg b.i.d.. This did appear to improve during patient's time here without any pharmacological intervention. 3. Sinus pressure-head CT without evidence of sinusitis. 4. Disposition-admit to the floor under the care of Dr. Najera. Medical Records Attestation: I reviewed the patient's medical records. Lab Data Attestation: I reviewed the patient's lab results. Labs: Lab Results 07/26/22 07/26/22 07/26/22 Range/Units 13:05 13:06 13:06 WBC 6.47 (4.50-11.00) K/uL RBC 3.97 L (4.30-5.90) m/uL Hgb 12.6 L (13.5-17.5) gm/dL Hct 38.8 (37.0-53.0) % MCV 98 (80-100) fL MCH 32 (26-34) pg MCHC 33 (32-36) gm/dL RDW Coeff of You 13.4 (11.5-15.5) % Plt Count 148 (140-440) K/uL Neut % (Auto) 76.0 H (42.0-72.0) % Lymph % (Auto) 12.5 L (20-44) % Whitman % (Auto) 9.4 (0.0-11.0) % Eos % (Auto) 1.4 (0.0-7.0) % Baso % (Auto) 0.5 (0.0-3.0) % Neut # (Auto) 4.90 (1.7-7.0) K/uL Lymph # (Auto) 0.80 L (0.90-2.90) K/uL Whitman # (Auto) 0.60 (0.00-0.90) K/UL Eos # (Auto) 0.09 (0.00-0.50) K/uL Baso # (Auto) 0.03 (0.00-0.30) K/uL Sodium 140 (135-149) mmol/L Potassium 3.9 (3.6-5.1) mmol/L Chloride 110 (96-114) mmol/L Carbon Dioxide 27 (20-32) mmol/L BUN 20 (7-30) mg/dL Creatinine 0.9 (0.5-1.5) mg/dL Estimated Creat Clear 82.20 Estimated GFR 93 ml/min Glucose 122 H (60-115) mg/dL Calcium 8.8 (8.4-10.6) mg/dL Total Bilirubin 0.8 (0.1-1.5) mg/dL AST 28 (12-35) U/L ALT 46 (4-50) U/L Alkaline Phosphatase 99 (40-150) U/L C-Reactive Protein 0.7 (0.5-1.0) mg/dL NT-Pro-B Natriuret Pep 1980 pg/mL Total Protein 6.4 (6.0-8.3) g/dL Albumin 3.7 (3.3-5.0) g/dL SARS-CoV-2 (PCR) (Negative) Influenza Type A (PCR) (Negative) Influenza Type B (PCR) (Negative) RSV (PCR) (Negative) POC Troponin I 0.00 L (0.01-0.04) ng/ml 07/26/22 Range/Units 13:06 WBC (4.50-11.00) K/uL RBC (4.30-5.90) m/uL Hgb (13.5-17.5) gm/dL Hct (37.0-53.0) % MCV (80-100) fL MCH (26-34) pg MCHC (32-36) gm/dL RDW Coeff of You (11.5-15.5) % Plt Count (140-440) K/uL Neut % (Auto) (42.0-72.0) % Lymph % (Auto) (20-44) % Whitman % (Auto) (0.0-11.0) % Eos % (Auto) (0.0-7.0) % Baso % (Auto) (0.0-3.0) % Neut # (Auto) (1.7-7.0) K/uL Lymph # (Auto) (0.90-2.90) K/uL Whitman # (Auto) (0.00-0.90) K/UL Eos # (Auto) (0.00-0.50) K/uL Baso # (Auto) (0.00-0.30) K/uL Sodium (135-149) mmol/L Potassium (3.6-5.1) mmol/L Chloride (96-114) mmol/L Carbon Dioxide (20-32) mmol/L BUN (7-30) mg/dL Creatinine (0.5-1.5) mg/dL Estimated Creat Clear Estimated GFR ml/min Glucose (60-115) mg/dL Calcium (8.4-10.6) mg/dL Total Bilirubin (0.1-1.5) mg/dL AST (12-35) U/L ALT (4-50) U/L Alkaline Phosphatase (40-150) U/L C-Reactive Protein (0.5-1.0) mg/dL NT-Pro-B Natriuret Pep pg/mL Total Protein (6.0-8.3) g/dL Albumin (3.3-5.0) g/dL SARS-CoV-2 (PCR) Negative SARS-CoV-2 (Negative) Influenza Type A (PCR) Negative PCR FLU A (Negative) Influenza Type B (PCR) Negative PCR FLU B (Negative) RSV (PCR) Negative PCR RSV (Negative) POC Troponin I (0.01-0.04) ng/ml Imaging Data CT scan - chest: Attestation: I have reviewed the pertinent imaging results. My impression: Bilateral pleural effusion Radiologist's impression: eart and vasculature: Contrast opacification of the pulmonary arterial tree is adequate. No sign of pulmonary embolism. Heart size is mildly enlarged, especially biatrial enlargement. Reflux of contrast into the hepatic veins, can be seen in the setting of right heart dysfunction. Thoracic aorta is enlarged measuring up to 4.8 centimeters in diameter. Main pulmonary artery is dilated measuring up to 3.8 centimeters in diameter.. Lungs and pleura: No suspicious nodules or infiltrates. Mild bibasilar atelectasis. Moderate right and small left pleural effusions. Lymph nodes/mediastinum: No mediastinal, hilar, or axillary adenopathy. Chest wall: No masses. Upper abdomen: No acute or significant findings. Bones: Unremarkable for age. IMPRESSION: No pulmonary embolism identified. Moderate right and small left pleural effusions with adjacent mild bibasilar compressive atelectasis. Mild biatrial enlargement with findings suspicious for right heart dysfunction. Dilated ascending aorta and main pulmonary artery. Sinus CT: Attestation: I have reviewed the pertinent imaging results. My impression: No air-fluid levels to indicate sinusitis Radiologist's impression: The partially visualized brain parenchyma is normal in attenuation with no evidence of midline shift or fluid collection. There is minimal chronic mucosal thickening within the left frontal sinus and left frontal recess. There is minimal thickening within the ethmoid air cells. The sphenoid sinus is well aerated. The maxillary sinuses are well aerated without significant mucoperiosteal thickening. The ostiomeatal units are clear. There is moderate leftward nasal septal deviation. There is no evidence of acute osseous abnormality. Impression: Mild chronic mucosal thickening seen within the ethmoid air cells and frontal sinus with moderate leftward nasal septal deviation. No evidence of air-fluid level. No displaced fracture. Chest x-ray: Attestation: I have reviewed the pertinent imaging results. My impression: Increased lung markings bibasilar. Radiologist's impression: Lungs and pleural spaces:? Mild bibasilar atelectasis. Blunting of the left costophrenic angle with underlying small pleural effusion. Possible small right pleural effusion as well. No pneumothorax.? Bones and soft tissues:? No significant findings. IMPRESSION: Basilar atelectasis and small left pleural effusion, with possible small right pleural effusion. ECG Data ECG interpretation date: 07/26/22 Interpretation: Atrial fibrillation with RVR at a rate of 112. Flattening of the T-waves noted on the anterior leads. Discharge Plan Discharge Clinical Impression: Heart failure, Pleural effusion, Atrial fibrillation with rapid ventricular response Patient Disposition: Admitted As Inpatient Condition: Unchanged
--- NOTE | 2022-07-26 12:44 | CRLHL7_ITS ---
For Patients: As a result of the Century Cures Act, medical imaging exams and procedure reports are released immediately into your electronic medical record. You may view this report before your referring provider. If you have questions, please contact your health care provider. INDICATION: Shortness of breath. TECHNIQUE: CT chest PE was acquired with 95 cc Isovue 370 IV contrast. COMPARISON: None. FINDINGS: Heart and vasculature: Contrast opacification of the pulmonary arterial tree is adequate. No sign of pulmonary embolism. Heart size is mildly enlarged, especially biatrial enlargement. Reflux of contrast into the hepatic veins, can be seen in the setting of right heart dysfunction. Thoracic aorta is enlarged measuring up to 4.8 centimeters in diameter. Main pulmonary artery is dilated measuring up to 3.8 centimeters in diameter.. Lungs and pleura: No suspicious nodules or infiltrates. Mild bibasilar atelectasis. Moderate right and small left pleural effusions. Lymph nodes/mediastinum: No mediastinal, hilar, or axillary adenopathy. Chest wall: No masses. Upper abdomen: No acute or significant findings. Bones: Unremarkable for age. IMPRESSION: No pulmonary embolism identified. Moderate right and small left pleural effusions with adjacent mild bibasilar compressive atelectasis. Mild biatrial enlargement with findings suspicious for right heart dysfunction. Dilated ascending aorta and main pulmonary artery. Please note that all CT scans at this facility use dose modulation, iterative reconstruction, and/or weight-based dosing when appropriate to reduce radiation dose to as low as reasonably achievable. Dictated by Philip Sandoval MD @ 07/26/2022 4:11:10 PM (Electronically Signed)
--- NOTE | 2022-07-26 12:44 | CRLHL7_ITS ---
For Patients: As a result of the Century Cures Act, medical imaging exams and procedure reports are released immediately into your electronic medical record. You may view this report before your referring provider. If you have questions, please contact your health care provider. Indication: Facial pressure Technique: Volumetric multidetector CT images of the paranasal sinuses were obtained without the administration of IV contrast. Comparison: None available Findings: The partially visualized brain parenchyma is normal in attenuation with no evidence of midline shift or fluid collection. There is minimal chronic mucosal thickening within the left frontal sinus and left frontal recess. There is minimal thickening within the ethmoid air cells. The sphenoid sinus is well aerated. The maxillary sinuses are well aerated without significant mucoperiosteal thickening. The ostiomeatal units are clear. There is moderate leftward nasal septal deviation. There is no evidence of acute osseous abnormality. Impression: Mild chronic mucosal thickening seen within the ethmoid air cells and frontal sinus with moderate leftward nasal septal deviation. No evidence of air-fluid level. No displaced fracture. Please note that all CT scans at this facility use dose modulation, iterative reconstruction, and/or weight-based dosing when appropriate to reduce radiation dose to as low as reasonably achievable. Dictated by Alexis Greene MD @ 07/26/2022 4:02:49 PM (Electronically Signed)
[2022-07-26 13:24] LABS: Basophils Absolute Auto 0.03 K/uL (0.00-0.30); Basophils Percent Auto 0.5 % (0.0-3.0); Eosinophils Absolute Auto 0.09 K/uL (0.00-0.50); Eosinophils Percent Auto 1.4 % (0.0-7.0); Hematocrit 38.8 % (37.0-53.0); Hemoglobin* 12.6 gm/dL (13.5-17.5); Immature Granulocytes Abs Auto 0.01 K/uL (0.00-0.30); Immature Granulocytes Pct Auto 0.2 %; Lymphocytes Percent Auto 12.5 % (20-44); Mean Corpuscular HGB Conc 33 gm/dL (32-36); Mean Corpuscular Hemoglobin 32 pg (26-34); Mean Corpuscular Volume 98 fL (80-100); Monocytes Percent Auto 9.4 % (0.0-11.0); Platelet Count* 148 K/uL (140-440); RDW Coefficient of Variation % 13.4 % (11.5-15.5); Red Blood Count 3.97 m/uL (4.30-5.90); White Blood Count* 6.47 K/uL (4.50-11.00)
[2022-07-26 13:56] LABS: PCR FLU A Negative PCR FLU A (Negative); PCR FLU B Negative PCR FLU B (Negative); PCR RSV Negative PCR RSV (Negative)
[2022-07-26 13:57] LABS: Slide Review Reflex No
[2022-07-26 13:58] LABS: SARS PCR* Negative SARS-CoV-2 (Negative)
[2022-07-26 14:12] LABS: Albumin* 3.7 g/dL (3.3-5.0); Sodium* 140 mmol/L (135-149)
[2022-07-26 14:13] LABS: Potassium* 3.9 mmol/L (3.6-5.1)
[2022-07-26 14:15] LABS: Bilirubin Total* 0.8 mg/dL (0.1-1.5); Creatinine* 0.9 mg/dL (0.5-1.5); Estimated Glomerular Filt Rate 93 ml/min
[2022-07-26 14:16] LABS: Alanine Aminotransferase* 46 U/L (4-50); Alkaline Phosphatase* 99 U/L (40-150); Calcium* 8.8 mg/dL (8.4-10.6); Glucose* 122 mg/dL (60-115); Total Protein* 6.4 g/dL (6.0-8.3)
[2022-07-26 14:17] LABS: Chloride* 110 mmol/L (96-114)
[2022-07-26 14:19] LABS: C Reactive Protein* 0.7 mg/dL (0.5-1.0)
[2022-07-26 14:20] LABS: Blood Urea Nitrogen* 20 mg/dL (7-30); Carbon Dioxide* 27 mmol/L (20-32)
[2022-07-26 14:32] LABS: Aspartate Amino Transferase* 28 U/L (12-35)
[2022-07-26 15:03] LABS: NT Pro B Type NatriureticPept* 1980 pg/mL
--- NOTE | 2022-07-26 16:15 | CRLHL7_ITS ---
For Patients: As a result of the Century Cures Act, medical imaging exams and procedure reports are released immediately into your electronic medical record. You may view this report before your referring provider. If you have questions, please contact your health care provider. INDICATION: Chest pain. TECHNIQUE: Chest 1 views. COMPARISON: None. FINDINGS: Cardiovascular and mediastinum: Cardiomediastinal silhouette is within normal limits. Lungs and pleural spaces: Mild bibasilar atelectasis. Blunting of the left costophrenic angle with underlying small pleural effusion. Possible small right pleural effusion as well. No pneumothorax. Bones and soft tissues: No significant findings. IMPRESSION: Basilar atelectasis and small left pleural effusion, with possible small right pleural effusion. Dictated by Philip Sandoval MD @ 07/26/2022 5:12:20 PM (Electronically Signed)
[2022-07-26] MEDS: SODIUM CHLORIDE 0.9 % (FLUSH) 10 ML SYRINGE 5 ML IVF ×2 (16:37→20:26)
[2022-07-26] MEDS: FUROSEMIDE 10 MG/ML inj 40 MG IVP (16:37)
--- NOTE | 2022-07-26 16:48 | P.IMHP_ITS ---
Hospitalist- H&P: HPI History of Present Illness Date Seen: 07/26/22 Chief complaint: shortness of breath Narrative: Alex Barraza is a 66 year old male with past medical history of atrial flutter/atrial fibrillation (on eliquis), HTN, likely undiagnosed ED presenting for evaluation of SOB. The patient has had intermittent SOB and cough since February when he was diagnosed with COVID 19. More recently he was diagnosed with sinus infection and PNA, he was treated/completed antibiotic therapy. Over the last two weeks he has had increased exertional dyspnea and cough. He endorses increased lower extremity edema and increased abdominal girth. He denies orthopnea; chest pain, fever, abdominal pain. His symptoms worsened today so he presented to ED. In the ED CT PE study was negative for PE but did show moderate right and small left pleural effusion; mild biatrial enlargement with findings suspicious for right heart dysfunction. In the ED EKG showed atrial fibrillation, BNP elevated 1980, POC Troponin WNL. He was given 40 mg IV lasix and admitted for further evaluation. CT Sinus Impression: Mild chronic mucosal thickening seen within the ethmoid air cells and frontal sinus with moderate leftward nasal septal deviation. No evidence of air-fluid level. No displaced fracture. CT PE Study IMPRESSION: No pulmonary embolism identified. Moderate right and small left pleural effusions with adjacent mild bibasilar compressive atelectasis. Mild biatrial enlargement with findings suspicious for right heart dysfunction. Dilated ascending aorta and main pulmonary artery. Review of Systems Status of ROS: Reports: 10 or more systems reviewed and unremarkable except as noted in History and below [facility] Medical History (Updated 07/26/22 @ 18:46 by Manjeet Woo MD) Atrial flutter with rapid ventricular response Cardiac arrhythmia Elevated cholesterol GERD (gastroesophageal reflux disease) Hypertension Surgical History Status post right hip replacement (11/05/21) Social History Smoking Status: Never smoker Do you use any of these nicotine containing products: None Second hand tobacco smoke exposure: No How often do you have a drink containing alcohol: 2-3 times a week How many standard drinks containing alcohol do you have on a typical day: 3 or 4 How often do you have six or more drinks on one occasion: Less than monthly AUDIT-C Alcohol total score: 5 Non-prescribed substance use: denies use service: No Meds Home Medications and Allergies Home Medications Medication Instructions Recorded Confirmed Type amlodipine 5 mg tablet 5 mg PO DAILY 04/21/22 07/26/22 History apixaban 5 mg tablet (Eliquis) 5 mg PO BID 04/21/22 07/26/22 History atenolol 50 mg tablet 50 mg PO BID 04/21/22 07/26/22 History hydrochlorothiazide 25 mg tablet 25 mg PO DAILY 04/21/22 07/26/22 History irbesartan 300 mg tablet 300 mg PO DAILY 04/21/22 07/26/22 History lorazepam 1 mg tablet 1 mg PO BID PRN 04/21/22 07/26/22 History omeprazole 20 mg capsule,delayed 20 mg PO BID 04/21/22 07/26/22 History release terazosin 5 mg capsule 10 mg PO HS 04/21/22 07/26/22 History zolpidem 10 mg tablet 10 mg PO HS 04/21/22 07/26/22 History fluticasone propionate 50 1 spray intranasal DAILY PRN 07/26/22 07/26/22 History mcg/actuation nasal spray,suspension montelukast 10 mg tablet 10 mg PO HS 07/26/22 07/26/22 History Allergies Allergy/AdvReac Type Severity Reaction Status Date / Time atorvastatin Allergy Verified 07/26/22 15:04 lisinopril Allergy Verified 07/26/22 15:04 Exam Narrative: Exam Narrative: Gen: no acute distress HEENT: NCAT EOMI mmm Neck: Supple CV: RRR normal s1 s2 Lungs: bibasilar crackles Abd: Soft,nt, nd Neuro: Alert, oriented, CN grossly intact; nonfocal screening?exam Psych: appropriate affect MSK: age appropriate muscle mass Skin; Warm, dry no rash on face ext: 1+ bilateral lower extremity edema Const: Vital Signs, click to edit/add: Vital Signs - 24 hr 07/26/22 12:18 07/26/22 12:33 07/26/22 12:39 Temperature 97.7 F 97.7 F Pulse Rate 86 Pulse Rate [Femora l] 90 Pulse Rate [Right Pulse Oximeter] 90 Respiratory Rate 22 20 Blood Pressure Blood Pressure [Ri ght Upper Arm] 134/122 H 134/122 H Pulse Oximetry 93 92 93 Oxygen Delivery Me thod Room Air Room Air 07/26/22 12:44 07/26/22 12:45 07/26/22 13:00 Temperature Pulse Rate 114 H 89 Pulse Rate [Femora l] Pulse Rate [Right Pulse Oximeter] Respiratory Rate Blood Pressure Blood Pressure [Ri ght Upper Arm] Pulse Oximetry 92 93 93 Oxygen Delivery Me thod 07/26/22 13:02 07/26/22 13:15 07/26/22 13:30 Temperature Pulse Rate 84 87 81 Pulse Rate [Femora l] Pulse Rate [Right Pulse Oximeter] Respiratory Rate Blood Pressure 142/90 H Blood Pressure [Ri ght Upper Arm] Pulse Oximetry 94 90 93 Oxygen Delivery Me thod 07/26/22 13:32 07/26/22 13:45 07/26/22 14:00 Temperature Pulse Rate 92 98 100 Pulse Rate [Femora l] Pulse Rate [Right Pulse Oximeter] Respiratory Rate Blood Pressure 147/113 H Blood Pressure [Ri ght Upper Arm] Pulse Oximetry 92 93 92 Oxygen Delivery Me thod 07/26/22 14:02 07/26/22 14:15 07/26/22 14:30 Temperature Pulse Rate 98 84 126 H Pulse Rate [Femora l] Pulse Rate [Right Pulse Oximeter] Respiratory Rate Blood Pressure 144/87 H Blood Pressure [Ri ght Upper Arm] Pulse Oximetry 94 92 90 Oxygen Delivery Me thod 07/26/22 14:32 07/26/22 14:45 07/26/22 15:04 Temperature Pulse Rate 99 99 134 H Pulse Rate [Femora l] Pulse Rate [Right Pulse Oximeter] Respiratory Rate Blood Pressure 137/115 H Blood Pressure [Ri ght Upper Arm] Pulse Oximetry 90 92 90 Oxygen Delivery Me thod 07/26/22 15:05 07/26/22 15:15 07/26/22 15:30 Temperature Pulse Rate 110 H 88 89 Pulse Rate [Femora l] Pulse Rate [Right Pulse Oximeter] Respiratory Rate Blood Pressure 160/143 H Blood Pressure [Ri ght Upper Arm] Pulse Oximetry 92 94 94 Oxygen Delivery Me thod 07/26/22 15:32 07/26/22 15:45 07/26/22 16:00 Temperature Pulse Rate 78 88 99 Pulse Rate [Femora l] Pulse Rate [Right Pulse Oximeter] Respiratory Rate Blood Pressure 139/110 H Blood Pressure [Ri ght Upper Arm] Pulse Oximetry 96 89 90 Oxygen Delivery [facility] 07/26/22 16:02 07/26/22 16:15 Temperature Pulse Rate 98 96 Pulse Rate [Femora l] Pulse Rate [Right Pulse Oximeter] Respiratory Rate Blood Pressure 146/96 H Blood Pressure [Ri ght Upper Arm] Pulse Oximetry 94 93 Oxygen Delivery [facility] Hospitalist - H&P: Result Labs Labs: Short CBC 07/26/22 Range/Units 13:06 WBC 6.47 (4.50-11.00) K/uL Hgb 12.6 L (13.5-17.5) gm/dL Hct 38.8 (37.0-53.0) % Plt Count 148 (140-440) K/uL BMP 07/26/22 13:06 Sodium 140 Potassium 3.9 Chloride 110 Carbon Dioxide 27 BUN 20 Creatinine 0.9 Glucose 122 H Calcium 8.8 Liver Function 07/26/22 Range/Units 13:06 Total Bilirubin 0.8 (0.1-1.5) mg/dL AST 28 (12-35) U/L ALT 46 (4-50) U/L Alkaline Phosphatase 99 (40-150) U/L Albumin 3.7 (3.3-5.0) g/dL Assessment and Plan Assessment and plan (1) Heart failure: Status: Acute (2) Pleural effusion: Status: Acute (3) Atrial fibrillation: Status: Acute (4) HTN (hypertension): Status: Acute Plan Assessment: Alex Barraza is a 66 year old male with past medical history of atrial flutter/atrial fibrillation (on eliquis), HTN, likely undiagnosed ED presenting for evaluation of SOB and cough. The patient has had intermittent SOB and cough since February when he was diagnosed with COVID 19. More recently he was diagnosed with sinus infection and PNA, he was treated/completed antibiotic therapy. Over the last two weeks he has had increased exertional dyspnea and cough. He endorses increased lower extremity edema and increased abdominal girth. In the ED CT PE study was negative for PE but did show moderate right and small left pleural effusion; mild biatrial enlargement with findings suspicious for right heart dysfunction. In the ED EKG showed atrial fibrillation, BNP elevated 1980, POC Troponin WNL. He was given 40 mg IV lasix and admitted for further evaluation. 1. Acute decompensated CHF exacerbation; baseline EF unknown 2. Hx of Atrial fibrillation 3. Hx of HTN 4. Hx of GERD 5. Hx of COVID 19 6. Obesity 7. Suspected ED Plan -admit to inpatient -tele -IV lasix; 40 IV given in ED give additional 20 mg IV tonight -electrolyte replacement -daily weight -monitor I&O -hold BB and ARB for tonight -hold norvasc -continue eliquis -start metoprolol tomorrow -echo -continue PPI -outpatient sleep study -outpatient cardiology follow up Code-Full DVT ppx-on eliquis Dispo-anticipated DC home 2-3 days
[2022-07-26] MEDS: OMEPRAZOLE 20 MG CAPSULE DR PO (18:54)
[2022-07-26] MEDS: POTASSIUM CHLORIDE 10 MEQ CAPSULE ER 30 MEQ PO (20:23)
[2022-07-26] MEDS: MAGNESIUM OXIDE 400 MG TABLET PO (20:24)
[2022-07-26] MEDS: FUROSEMIDE 10 MG/ML inj 20 MG IVP (20:25)
[2022-07-26] MEDS: APIXABAN 5 MG TABLET PO (20:25)
[2022-07-26] MEDS: TERAZOSIN HCL 5 MG CAPSULE PO (20:25)
[2022-07-26] MEDS: METOPROLOL TARTRATE 25 MG TABLET 12.5 MG PO (21:40)
[2022-07-26] MEDS: SENNOSIDES/DOCUSATE TABLET 1 TAB PO (21:41)
[2022-07-26] MEDS: ZOLPIDEM 5 MG TABLET 10 MG PO (21:41)
[2022-07-27] VITALS (8 sets, daily range): BP systolic 102–163; BP diastolic 91–125; PULSE 84–118; RESP 18–20; TEMP 36.2–36.8; O2SAT 92–95
[2022-07-27] MEDS: FUROSEMIDE 10 MG/ML inj 20 MG IVP (06:04)
[2022-07-27] MEDS: OMEPRAZOLE 20 MG CAPSULE DR PO ×2 (06:04→17:49)
--- NOTE | 2022-07-27 06:29 | PC.NURSE ---
END OF SHIFT NOTE: PT PLEASANT AND COOPERATIVE WITH CARES. PT AMBULATES TO BATHROOM INDEPENDENTLY WITH STEADY GAIT. DENIES CP, N/V. SOB WITH ACTIVITY; RECOVERS QUICKLY. ANTERIOR WHEEZES NOTED. TELE READS AFIB WITH RVR.
[2022-07-27 06:42] LABS: Basophils Absolute Auto 0.05 K/uL (0.00-0.30); Basophils Percent Auto 0.8 % (0.0-3.0); Eosinophils Percent Auto 3.1 % (0.0-7.0); Hemoglobin* 13.3 gm/dL (13.5-17.5); Immature Granulocytes Abs Auto 0.01 K/uL (0.00-0.30); Immature Granulocytes Pct Auto 0.2 %; Lymphocytes Percent Auto 18.5 % (20-44); Mean Corpuscular HGB Conc 32 gm/dL (32-36); Mean Corpuscular Hemoglobin 31 pg (26-34); Mean Corpuscular Volume 97 fL (80-100); Monocytes Percent Auto 11.2 % (0.0-11.0); Neutrophils Absolute Auto 4.26 K/uL (1.7-7.0); Neutrophils Percent Auto 66.2 % (42.0-72.0); Platelet Count* 149 K/uL (140-440); RDW Coefficient of Variation % 13.3 % (11.5-15.5); Red Blood Count 4.24 m/uL (4.30-5.90); White Blood Count* 6.43 K/uL (4.50-11.00)
[2022-07-27 06:43] LABS: Slide Review Reflex No
[2022-07-27 06:54] LABS: Chloride* 106 mmol/L (96-114)
[2022-07-27 06:55] LABS: Potassium* 3.4 mmol/L (3.6-5.1); Sodium* 142 mmol/L (135-149)
[2022-07-27 06:57] LABS: Creatinine* 0.8 mg/dL (0.5-1.5); Estimated Glomerular Filt Rate 96 ml/min
[2022-07-27 06:58] LABS: Blood Urea Nitrogen* 16 mg/dL (7-30); Calcium* 8.7 mg/dL (8.4-10.6); Carbon Dioxide* 30 mmol/L (20-32); Glucose* 101 mg/dL (60-115); Magnesium* 1.7 mg/dL (1.5-2.6)
[2022-07-27] MEDS: SENNOSIDES/DOCUSATE TABLET 1 TAB PO ×2 (09:32→21:21)
[2022-07-27] MEDS: MAGNESIUM OXIDE 400 MG TABLET PO ×2 (09:32→21:19)
[2022-07-27] MEDS: METOPROLOL TARTRATE 25 MG TABLET PO (09:32)
[2022-07-27] MEDS: APIXABAN 5 MG TABLET PO ×2 (09:32→21:20)
[2022-07-27] MEDS: POTASSIUM CHLORIDE 10 MEQ CAPSULE ER 20 MEQ PO ×2 (09:33→17:49)
[2022-07-27] MEDS: IRBESARTAN 150 MG TABLET 300 MG PO (09:34)
[2022-07-27] MEDS: SODIUM CHLORIDE 0.9 % (FLUSH) 10 ML SYRINGE 5 ML IVF ×2 (09:44→21:21)
[2022-07-27] MEDS: atenoloL 50 MG TABLET PO ×2 (12:18→21:19)
[2022-07-27] MEDS: AMLODIPINE 5 MG TABLET PO (12:19)
--- NOTE | 2022-07-27 15:40 | PM.IMPN1 ---
Progress Note: A&P Assessment and plan (1) Heart failure: Problem details: Await results of echo Status: Acute (2) Pleural effusion: Problem details: Mild Status: Acute (3) Atrial fibrillation: Problem details: Rate controlled Status: Acute (4) HTN (hypertension): Problem details: Relatively resistant to treatment efforts, concerning for a secondary cause that is not presently being addressed. Status: Acute Assessment and Plan: Initiated discussion with patient about the possibility that he may have an on diagnosis secondary conditions such as obstructive sleep apnea that may warrant additional assessment and treatment in order to get blood pressure under better control as well. Plan 1. Reviewed impression with patient 2. Answers questions 3. Patient agreeable 4. Transition to oral diuresis 5. Possibly ready for discharge from the hospital and is early as the the next 1-2 days Time Spent With Patient Total time spent: 30 minutes Subjective Time Seen by Provider: 11:00 Date Seen: 07/27/22 Interval history: Hospital day 2. He tells me that the diuresing was very effective. He urinated much throughout the night last night. He tells me his weight is down about 10 lb. Indeed his admission weight was 141.7 kg. Today's weight is 137 kg. He tells me he has not breathed as easily as he currently is for at least 2 months. Dyspnea with exertion is much improved than what it had been. Denies any paroxysmal nocturnal dyspnea or orthopnea. No cough. Denies chest heaviness, pressure, tightness, or pain. Denies orthostasis, lightheadedness, near-syncope or syncope. Exam Narrative: Exam Narrative: Appears comfortable and in no acute distress. Alert and oriented to self, place, time, situation. Friendly, talkative, articulate. Mood and affect are congruent. Lungs are clear to auscultation right now without any wheezing, rhonchi, or rales. Heart tones with regular rhythm, normal S1-S2. No murmur, gallop, or rub. No CVA tenderness. Abdomen with active bowel sounds, soft, nontender. Extremities with trace edema pretibially. No focal motor neurologic deficits. Independent transfer, station, and gait. Skin is warm, dry, intact. Const: Vital Signs, click to edit/add: Vital Signs - 24 hr 07/26/22 15:45 07/26/22 16:00 07/26/22 16:02 Temperature Pulse Rate 88 99 98 Pulse Rate [Apical ] Pulse Rate [Pulse Oximeter] Respiratory Rate Blood Pressure 146/96 H Blood Pressure [Ri ght Arm] Pulse Oximetry 89 90 94 Oxygen Delivery Me thod 07/26/22 16:15 07/26/22 16:30 07/26/22 16:32 Temperature Pulse Rate 96 95 103 H Pulse Rate [Apical ] Pulse Rate [Pulse Oximeter] Respiratory Rate Blood Pressure 153/89 H Blood Pressure [Ri ght Arm] Pulse Oximetry 93 93 93 Oxygen Delivery Il thod 07/26/22 16:45 07/26/22 17:00 07/26/22 17:02 Temperature Pulse Rate 98 86 90 Pulse Rate [Apical ] Pulse Rate [Pulse Oximeter] Respiratory Rate Blood Pressure 141/108 H Blood Pressure [Ri ght Arm] Pulse Oximetry 93 93 94 Oxygen Delivery Il thod 07/26/22 17:03 07/26/22 17:21 07/26/22 18:26 Temperature 97.7 F Pulse Rate 78 95 Pulse Rate [Apical ] Pulse Rate [Pulse Oximeter] Respiratory Rate 20 Blood Pressure Blood Pressure [Ri ght Arm] Pulse Oximetry 95 91 Oxygen Delivery Il thod Room Air 07/26/22 18:26 07/26/22 20:00 07/26/22 20:00 Temperature 98.0 F Pulse Rate Pulse Rate [Apical ] Pulse Rate [Pulse Oximeter] Respiratory Rate 20 16 Blood Pressure Blood Pressure [Ri ght Arm] Pulse Oximetry 91 94 94 [facility] 07/26/22 20:00 07/27/22 01:45 07/27/22 02:19 Temperature 97.6 F Pulse Rate 91 Pulse Rate [Apical ] 98 Pulse Rate [Pulse Oximeter] 102 H Respiratory Rate 16 20 Blood Pressure Blood Pressure [Ri ght Arm] Pulse Oximetry 92 Oxygen Delivery Il thod Room Air 07/27/22 08:00 07/27/22 08:00 07/27/22 11:00 Temperature 97.2 F L 97.7 F Pulse Rate Pulse Rate [Apical ] 107 H 93 Pulse Rate [Pulse Oximeter] 107 H 93 Respiratory Rate 20 20 Blood Pressure Blood Pressure [Ri ght Arm] 163/125 H 102/92 H Pulse Oximetry 94 94 94 Oxygen Delivery Il thod Room Air Room Air 01/17/23 10:17 Temperature Pulse Rate 118 H Pulse Rate [Apical ] Pulse Rate [Pulse Oximeter] Respiratory Rate Blood Pressure Blood Pressure [Ri ght Arm] Pulse Oximetry Oxygen Delivery Me thod Documenting provider has reviewed patient's vital signs: yes Labs Labs: Laboratory Results - last 24 hr 07/27/22 07/27/22 05:55 05:55 WBC 6.43 RBC 4.24 L Hgb 13.3 L Hct 41.0 MCV 97 MCH 31 MCHC 32 RDW Coeff of You 13.3 Plt Count 149 Neut % (Auto) 66.2 Lymph % (Auto) 18.5 L [place] % (Auto) 11.2 H Eos % (Auto) 3.1 Baso % (Auto) 0.8 Neut # (Auto) 4.26 Lymph # (Auto) 1.20 [place] # (Auto) 0.70 Eos # (Auto) 0.20 Baso # (Auto) 0.05 Sodium 142 Potassium 3.4 L Chloride 106 Carbon Dioxide 30 BUN 16 Creatinine 0.8 Estimated Creat Clear 82.20 Estimated GFR 96 Glucose 101 Calcium 8.7 Magnesium 1.7
--- NOTE | 2022-07-27 18:54 | PC.NURSE ---
Shift note: Pt is pleasant and cooperate with care and treatment. Denied SOB, pain, N/V. Able to urinate and therefore no straight catheter inserted. Ambulate independently to and from BR.
[2022-07-27] MEDS: ZOLPIDEM 5 MG TABLET 10 MG PO (21:19)
[2022-07-27] MEDS: TERAZOSIN HCL 5 MG CAPSULE PO (21:21)
[2022-07-28] VITALS (7 sets, daily range): BP systolic 119–140; BP diastolic 90–100; PULSE 85–138; RESP 16–20; TEMP 36.1–36.8; O2SAT 92–94
--- NOTE | 2022-07-28 06:46 | PC.NURSE ---
Pt continues to show A fib on tele. Denies painor discomfort. Up to the bathroom x 3. On RA with no signs of SOB with activity. VSS.
[2022-07-28] MEDS: OMEPRAZOLE 20 MG CAPSULE DR PO (09:40)
[2022-07-28] MEDS: POTASSIUM CHLORIDE 10 MEQ CAPSULE ER 20 MEQ PO (09:40)
[2022-07-28] MEDS: SENNOSIDES/DOCUSATE TABLET 1 TAB PO (09:41)
[2022-07-28] MEDS: APIXABAN 5 MG TABLET PO (09:41)
[2022-07-28] MEDS: atenoloL 50 MG TABLET PO (09:41)
[2022-07-28] MEDS: ACETAMINOPHEN 500 MG TABLET PO (09:42)
[2022-07-28] MEDS: IRBESARTAN 150 MG TABLET 300 MG PO (09:42)
[2022-07-28] MEDS: MAGNESIUM OXIDE 400 MG TABLET PO (09:42)
[2022-07-28] MEDS: AMLODIPINE 5 MG TABLET PO (09:42)
[2022-07-28] MEDS: SODIUM CHLORIDE 0.9 % (FLUSH) 10 ML SYRINGE 5 ML IVF (09:43)
--- NOTE | 2022-07-28 10:14 | NUTR.NU ---
RDN with verbal MD consult for diet education related to new diagnosis of heart failure. RDN visited with patient whom agreed to receive diet education. Nutrition education provided on a low sodium diet related to congestive heart failure. Verbal and written information provided. Recommend limiting sodium to 2,000 mg per day. Discussed foods recommended and to avoid. Handouts provided from [facility] on heart failure nutrition therapy, sodium content of foods, heart healthy label reading tips, sodium-free flavoring tips and heart healthy cooking and shopping tips. Patient verbalized understanding. RDN's contact information was provided and patient was encouraged to call with questions.
[2022-07-28] MEDS: FUROSEMIDE 40 MG TABLET PO (14:13)
--- NOTE | 2022-07-28 15:29 | ONC.NURNOTE ---
alert and oriented. denies discomfort. CHF teaching. Dr. Parker aware of pt heart rate up to 138 with ambulation. pt asymptomatic. discharged to home at 1500
--- NOTE | 2022-07-29 16:25 | P.DS_ITS ---
DS: Providers Provider Time Seen by Provider: 09:00 Date Seen: 07/28/22 Date of admission: 07/26/22 17:21 Primary care physician: Obinna Barragan MD Admitting Clinician: Domenico Ceja MD Attending Physician on discharge: Domenico Ceja MD Date of Discharge: 07/28/22 DS: Diagnosis Discharge Diagnosis (1) Heart failure: Status: Acute Problem details: Await results of echo (2) Pleural effusion: Status: Acute Problem details: Mild (3) HTN (hypertension): Status: Acute Problem details: Relatively resistant to treatment efforts, concerning for a secondary cause that is not presently being addressed. (4) Atrial fibrillation: Status: Acute Problem details: Rate controlled DS: Summary Hospital Course Hospital Course: Alex Barraza is a 66 year old male with past medical history of atrial flutter/atrial fibrillation (on eliquis), HTN, likely undiagnosed ED presenting for evaluation of SOB. The patient has had intermittent SOB and cough since February when he was diagnosed with COVID 19. More recently he was diagnosed with sinus infection and PNA, he was treated/completed antibiotic therapy. Over the last two weeks he has had increased exertional dyspnea and cough. He endorses increased lower extremity edema and increased abdominal girth. He denies orthopnea; chest pain, fever, abdominal pain. His symptoms worsened today so he presented to ED. In the ED CT PE study was negative for PE but did show moderate right and small left pleural effusion; mild biatrial enlargement with findings suspicious for right heart dysfunction. In the ED EKG showed atrial fibrillation, BNP elevated 1980, POC Troponin WNL. He was given 40 mg IV lasix and admitted for further evaluation. CT Sinus Impression: Mild chronic mucosal thickening seen within the ethmoid air cells and frontal sinus with moderate leftward nasal septal deviation. No evidence of air-fluid level. No displaced fracture. CT PE Study IMPRESSION: No pulmonary embolism identified. Moderate right and small left pleural effusions with adjacent mild bibasilar compressive atelectasis. Mild biatrial enlargement with findings suspicious for right heart dysfunction. Dilated ascending aorta and main pulmonary artery. He was initially diuresed with IV furosemide. He diuresed a total of 10 lb throughout the course of hospital stay. Weight on discharge down to 138.8 kg. Overall felt much improved. He states he has not breathe so well for at least 2 months. Troponin I's were negative. Echocardiogram demonstrated preserved ejection fraction above 55% with diastolic dysfunction and no LVH. Does have mild to moderate tricuspid regurgitation. Does have [id number] pulmonary hypertension. Status at Discharge Overall status at discharge: patient is back to baseline Time Spent with Patient Time attestation: Total time spent providing and/or coordinating discharge services: Time spent: Greater than 30 minutes Exam Narrative: Exam Narrative: Appears comfortable and in no acute distress.? Alert and oriented to self, place, time, situation.? Friendly, talkative, articulate.? Mood and affect are congruent.? Lungs are clear to auscultation right now without any wheezing, rhonchi, or rales.? Heart tones with regular rhythm, normal S1-S2.? No murmur, gallop, or rub.? No CVA tenderness.? Abdomen with active bowel sounds, soft, nontender.? Extremities with trace edema pretibially.? No focal motor neurologic deficits.? Independent transfer, station, and gait.? Skin is warm, dry, intact.? Const: Documenting provider has reviewed patient's vital signs: yes Discharge Plan Discharge Disposition: Home, Self-Care Date of Admission: 07/26/22 17:21 Attending Provider on Discharge: Domenico Ceja Primary Care Provider: Obinna Barragan Condition: Improved Anticipated Discharge Date/Time: 07/28/22 15:30 Discharge Medications: New magnesium oxide 400 mg (241.3 mg magnesium) Tablet 400 mg PO DAILY Qty: 30 0RF furosemide 20 mg Tablet 60 mg PO DAILY@0800 30 Days Qty: 90 1RF potassium chloride 10 mEq Capsule, Extended Release 20 meq PO BIDWM 30 Days Qty: 60 1RF Continued Eliquis 5 mg tablet 5 mg PO BID Label Comments: TAKE ONE TABLET BY MOUTH TWICE DAILY amlodipine 5 mg tablet 5 mg PO DAILY Label Comments: TAKE ONE TABLET BY MOUTH ONE TIME DAILY atenolol 50 mg tablet 50 mg PO BID Label Comments: TAKE ONE TABLET BY MOUTH TWICE DAILY irbesartan 300 mg tablet 300 mg PO DAILY Label Comments: TAKE ONE TABLET BY MOUTH ONE TIME DAILY lorazepam 1 mg tablet 1 mg PO BID PRN Label Comments: Take 1 Tablet (1 mg) by mouth 2 times daily if needed for Anxiety or Sleep. omeprazole 20 mg capsule,delayed release(DR/EC) 20 mg PO BID Label Comments: TAKE TWO CAPSULE BY MOUTH TWICE DAILY BEFORE MEALS terazosin 5 mg capsule 10 mg PO HS Label Comments: TAKE TWO CAPSULE BY MOUTH DAILY AT BEDTIME zolpidem 10 mg tablet 10 mg PO HS Label Comments: TAKE ONE TABLET BY MOUTH ONE TIME DAILY AT BEDTIME fluticasone propionate 50 mcg/actuation spray,suspension 1 spray intranasal DAILY PRN Rx Instructions: administer into each nostril montelukast 10 mg tablet 10 mg PO HS Label Comments: TAKE ONE TABLET BY MOUTH AT BEDTIME Discontinued hydrochlorothiazide 25 mg tablet 25 mg PO DAILY Label Comments: TAKE ONE TABLET BY MOUTH ONE TIME DAILY Discharge Orders: Discharge Order (Routine); Ordered 07/28/22 Ordered By: Domenico Ceja Patient Education: Furosemide (By mouth), Potassium Chloride (By mouth), Magnesium (By mouth), Heart Failure (GEN), A-fib (Atrial Fibrillation) (GEN) Additional Instructions: 1. Follow-up with Dr. Hickman in 5-10 days; 2. Follow-up with cardiology, 1-2 months; 3. Heart failure prevention precautions. Activity Level: No Restrictions and Activity as Tolerated Discharge Diet: 2 gm Sodium Follow Up Appointments: Ethan Yoon [Staff Physician] - 10/12/22 10:30 am (Appointment is set up a bit far out - please contact clinic to see if they have an opening sooner or to send a message to can dragger ) Obinna Barragan MD [Primary Care Provider] - 08/06/22 9:10 am (Post- hospitalization follow-up in 5-10 days, regarding acute heart failure) Forms: [employer] Info Instructions
== END 2022-07-28 15:30 | disposition home or self-care (01) | DRG 292 ==
LOC: ED 17:01 → MEDSURG 17:07
PROVIDERS: Hospitalist; Admitting Provider Internal Medicine; Emergency Provider Family Medicine; PCP Family Medicine; Visit Provider Internal Medicine
DX: I50.9 Heart failure, unspecified (principal); J90 Pleural effusion, not elsewhere classified; I48.91 Unspecified atrial fibrillation; I10 Essential (primary) hypertension; R60.0 Localized edema; R79.89 Other specified abnormal findings of blood chemistry; I07.1 Rheumatic tricuspid insufficiency; Z79.01 Long term (current) use of anticoagulants
CPT/HCPCS: 36415; 70486; 71045; 71260; 80048; 80053; 83735; 83880; 84484; 85025; 86140; 87502; 87634; 87635; 93005; 93306; 94761; 99285; G0378; A9270; J1940; Q9967

== ENCOUNTER 2023-05-25 12:02 | Emergency (ER) | payer MEDICARE, BC, SELFPAY ==
[2023-05-25 12:09] VITALS: BP 115/78; PULSE 85; RESP 18; TEMP 36.2; O2SAT 100; BMI 37.9
--- NOTE | 2023-05-25 12:14 | ED_ITS ---
HPI - Eye Problem General Chief complaint: Eye Problems Stated complaint: Red L eye Time Seen by Provider: 05/25/23 12:06 History of Present Illness HPI Narrative: This 67-year-old male comes in reporting some redness in the medial aspect of his left eye. He does not report any injury event. He does not have any other symptoms but there is redness and the sclera of the medial aspect of his left eye. He is on Eliquis for atrial fibrillation. He does not report any visual changes. He does not have any sense of foreign object or injury. Related Data Home Medications Medication Instructions Recorded Confirmed amlodipine 5 mg tablet 5 mg PO DAILY 04/21/22 07/26/22 apixaban 5 mg tablet (Eliquis) 5 mg PO BID 04/21/22 07/26/22 atenolol 50 mg tablet 50 mg PO BID 04/21/22 07/26/22 irbesartan 300 mg tablet 300 mg PO DAILY 04/21/22 07/26/22 lorazepam 1 mg tablet 1 mg PO BID PRN 04/21/22 07/26/22 omeprazole 20 mg capsule,delayed 20 mg PO BID 04/21/22 07/26/22 release terazosin 5 mg capsule 10 mg PO HS 04/21/22 07/26/22 zolpidem 10 mg tablet 10 mg PO HS 04/21/22 07/26/22 fluticasone propionate 50 1 spray intranasal DAILY PRN 07/26/22 07/26/22 mcg/actuation nasal spray,suspension montelukast 10 mg tablet 10 mg PO HS 07/26/22 07/26/22 Previous Rx's Medication Instructions Recorded furosemide 20 mg tablet 60 mg (3 x 20 mg) PO DAILY@0800 30 07/28/22 days #90 tabs magnesium oxide 400 mg (241.3 mg 400 mg PO DAILY #30 tabs 07/28/22 magnesium) tablet potassium chloride 10 mEq 20 meq (2 x 10 mEq) PO BIDWM 30 07/28/22 capsule,extended release days #60 caps Allergies Allergy/AdvReac Type Severity Reaction Status Date / Time atorvastatin Allergy Verified 07/26/22 15:04 lisinopril Allergy Verified 07/26/22 15:04 Review of Systems Status of ROS: Reports: 10 or more systems reviewed and unremarkable except as noted in History and below Narrative: Constitutional: No fevers, no weight gain or loss. Eyes: No discharge. No vision changes. Redness in the medial aspect of the left eye as described above. HENT: No congestion, no sore throat, no ear pain. Cardiovascular: No chest pain, no palpitations. Respiratory: No shortness of breath, no wheezes, no cough. Gastrointestinal: No abdominal pain, no vomiting, no diarrhea. Genitourinary: No dysuria, no hematuria. Musculoskeletal: Normal range of motion. Skin: No rashes, no pruritis. Neurological: No dizziness, weakness, sensory change, speech change. Endo/Heme/Allergies: No bruising or bleeding. No polydipsia. Pysch: no suicidality, no anxiety, no insomnia. All other systems reviewed and are negative. 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) ?Z96.641 - Presence of right artificial hip joint (ICD-10) Social History Smoking Status: Never smoker Do you use any of these nicotine containing products: None Second hand tobacco smoke exposure: No How often do you have a drink containing alcohol: 2-3 times a week How many standard drinks containing alcohol do you have on a typical day: 3 or 4 How often do you have six or more drinks on one occasion: Less than monthly AUDIT-C Alcohol total score: 5 Non-prescribed substance use: denies use service: No Exam Narrative: Exam Narrative: Constitutional: Well-developed, well-nourished, no acute distress. HEENT: Normocephalic, atraumatic. The left eye has a subconjunctival hematoma. There is no sign of foreign object. He has no discomfort. Neck: Normal range of motion. Nontender. Supple. Heart: Intact distal pulses. Lungs: No chest discomfort. No wheezes, rhonchi, or rales. Abdomen: Nontender. Back: Normal range of motion. Extremities: Normal range of motion. No injury. Skin: Intact. No rash. Warm. No erythema or pallor. Neurologic: No altered sensation. No weakness. Alert and oriented. Psychiatric: No suicidality. No anxiety or depression. No insomnia. Nursing notes and vitals signs are reviewed. Const: Vital Signs, click to edit/add: Vital Signs - 24 hr 05/25/23 12:09 Temperature 97.1 F L Pulse Rate [Right Pulse Oximeter] 85 Respiratory Rate 18 Blood Pressure [Ri ght Upper Arm] 115/78 Pulse Oximetry 100 Oxygen Delivery Me thod Room Air Course Vital Signs Vital signs: Initial Vital Signs Temperature 97.1 F L 05/25/23 12:09 Temperature Source Temporal Artery Scan 05/25/23 12:09 Pulse Rate 85 05/25/23 12:09 Pulse Rhythm Regular 05/25/23 12:09 Respiratory Rate 18 05/25/23 12:09 Blood Pressure 115/78 05/25/23 12:09 Blood Pressure Mean 90 05/25/23 12:09 Blood Pressure Position Sitting 05/25/23 12:09 Pulse Oximetry 100 05/25/23 12:09 Oxygen Delivery Method Room Air 05/25/23 12:09 Vital Signs Temperature 97.1 F L 05/25/23 12:09 Pulse Rate 85 05/25/23 12:09 Respiratory Rate 18 05/25/23 12:09 Blood Pressure 115/78 05/25/23 12:09 Pulse Oximetry 100 05/25/23 12:09 Oxygen Delivery Method Room Air 05/25/23 12:09 Temperature 97.1 F L 05/25/23 12:09 Pulse Rate 85 05/25/23 12:09 Respiratory Rate 18 05/25/23 12:09 Blood Pressure 115/78 05/25/23 12:09 Pulse Oximetry 100 05/25/23 12:09 Oxygen Delivery Method Room Air 05/25/23 12:09 MDM - Eye Problem MDM Narrative Medical decision making narrative: This patient is on Eliquis for atrial fibrillation and comes in with a subconjunctival hematoma on the medial aspect of his left eye. She does not have any other symptoms. He was concerned just from the appearance of the redness in his eye. On exam there is no sign of foreign object. Funduscopic exam also is normal. He has normal visual rhoades. He is reassured with these results. Discharge Plan Discharge Clinical Impression: Subconjunctival hemorrhage Patient Disposition: Home, Self-Care Condition: Stable Additional Instructions: Continue current plans. Follow up with MD return if worsening. Prescriptions: No Action Eliquis 5 mg tablet 5 mg PO BID Patient Comments: TAKE ONE TABLET BY MOUTH TWICE DAILY amlodipine 5 mg tablet 5 mg PO DAILY Patient Comments: TAKE ONE TABLET BY MOUTH ONE TIME DAILY atenolol 50 mg tablet 50 mg PO BID Patient Comments: TAKE ONE TABLET BY MOUTH TWICE DAILY irbesartan 300 mg tablet 300 mg PO DAILY Patient Comments: TAKE ONE TABLET BY MOUTH ONE TIME DAILY lorazepam 1 mg tablet 1 mg PO BID PRN Patient Comments: Take 1 Tablet (1 mg) by mouth 2 times daily if needed for Anxiety or Sleep. omeprazole 20 mg capsule,delayed release(DR/EC) 20 mg PO BID Patient Comments: TAKE TWO CAPSULE BY MOUTH TWICE DAILY BEFORE MEALS terazosin 5 mg capsule 10 mg PO HS Patient Comments: TAKE TWO CAPSULE BY MOUTH DAILY AT BEDTIME zolpidem 10 mg tablet 10 mg PO HS Patient Comments: TAKE ONE TABLET BY MOUTH ONE TIME DAILY AT BEDTIME fluticasone propionate 50 mcg/actuation spray,suspension 1 spray intranasal DAILY PRN Rx Instructions: administer into each nostril montelukast 10 mg tablet 10 mg PO HS Patient Comments: TAKE ONE TABLET BY MOUTH AT BEDTIME magnesium oxide 400 mg (241.3 mg magnesium) Tablet 400 mg PO DAILY Qty: 30 0RF furosemide 20 mg Tablet 60 mg PO DAILY@0800 30 Days Qty: 90 1RF potassium chloride 10 mEq Capsule, Extended Release 20 meq PO BIDWM 30 Days Qty: 60 1RF Follow Up/Referrals: Obinna Barragan MD [Primary Care Provider] - Stand Alone Forms: [employer] Info Instructions
== END 2023-05-25 12:41 | disposition home or self-care (01) ==
PROVIDERS: Emergency Provider Emergency Medicine Emergency Medical Services; PCP Family Medicine
DX: H11.32 Conjunctival hemorrhage, left eye (principal)
CPT/HCPCS: 99283; 99284

== ENCOUNTER 2023-08-12 10:44 | Emergency (ER) | payer MEDICARE, BC, SELFPAY ==
[2023-08-12] VITALS (13 sets, daily range): BP systolic 88–114; BP diastolic 68–84; PULSE 59–111; RESP 20; TEMP 36.6; O2SAT 94–98; BMI 38.5
--- OUTSIDE RECORDS SUMMARY | 2023-08-12 11:32 | XMS_ITS | Clinical Summary ---
Author Name Unknown Organization [facility] Address [place], [place] [address] Care Team Providers Care Hadoop Application Developer Name Role Phone bOinna Barragan MD Primary Care Provider [phone] Allergies Active Allergy Reactions Criticality Noted Date Comments Atorvastatin Other - Describe In Comment Field ankle pain and swelling Lisinopril Throat Swelling/Closing,An gioedema High 10/10/2007 Pseudoephedrine Tachycardia 08/06/2022 He goes into rapid atrial fibrillation when he takes this. Sulfamethoxazole-Trimet hoprim GI Upset Medium 08/21/2014 A two week course ripped up my stomach. Medications Medication Sig Dispensed Refills Start Date End Date Status medication order composerIndication s:Constipation ComforTone stool softener/laxativ e - take 2 daily as needed for constipation 0 08/16/19 15 Active glucosamine-chondr oitin, 500-400 mg, (COSAMIN DS 500/400) 500-400 mg capIndications:Hip pain, right,Neck pain, chronic Take 1 Capsule by mouth once daily. 0 09/17/19 21 Active albuterol HFA (PRO-AIR; VENTOLIN; PROVENTIL) 90 mcg/actuation inhalerIndications :Wheezing Inhale 1-2 Puffs by mouth every 4 hours if needed for Wheezing. 1 Each 1 10/14/19 23 Active amLODIPine (NORVASC) 5 mg tabletIndications: Essential hypertension Take 1 Tablet (5 mg) by mouth once daily. 90 Tablet 3 10/14/19 23 Active fluticasone (50 mcg per actuation) nasal solution (FLONASE)Indicatio ns:Chronic rhinitis Inhale 2 Sprays to both nostrils once daily if needed for Rhinitis. 48 g 3 10/14/19 23 Active furosemide (LASIX) 20 mg tabletIndications: Acute diastolic CHF (congestive heart failure) (HC) Take 2 Tablets (40 mg) by mouth once daily. 180 Tablet 3 10/14/19 23 Active hyoscyamine (LEVSIN) 0.125 mg tabletIndications: Other irritable bowel syndrome Take 1 Tablet (0.125 mg) by mouth every 4 hours if needed for Colic. 360 Tablet 3 10/14/19 23 Active montelukast (SINGULAIR) 10 mg tabletIndications: Chronic rhinitis Take 1 Tablet (10 mg) by mouth at bedtime. 90 Tablet 3 10/14/19 23 Active potassium chloride (MICRO-K) 10 mEq Controlled-release capsuleIndications :Acute diastolic CHF (congestive heart failure) (HC) Take 2 Capsules (20 mEq) by mouth two times daily with meals. 360 Capsule 3 10/14/19 23 Active tadalafiL (CIALIS) 10 mg tabletIndications: Other male erectile dysfunction Take 1 Tablet (10 mg) by mouth once daily if needed (Erectile dysfunction). Take 30 minutes before sexual activity. 30 Tablet 5 10/14/19 23 Active terazosin (HYTRIN) 5 mg capsuleIndications :Essential hypertension,Chron ic prostatitis Take 2 Capsules (10 mg) by mouth at bedtime. 180 Capsule 3 10/14/19 23 Active rosuvastatin (CRESTOR) 5 mg tabletIndications: Other hyperlipidemia Take 1 Tablet (5 mg) by mouth once daily with evening meal. 90 Tablet 3 12/15/19 23 Active spironolactone (ALDACTONE) 25 mg tabletIndications: Cardiovascular symptoms Take 1 Tablet (25 mg) by mouth once daily. 90 Tablet 3 12/22/19 23 Active metoprolol succinate (TOPROL XL) 50 mg sustained-release tabletIndications: Cardiovascular symptoms Take 1 Tablet (50 mg) by mouth two times daily. 180 Tablet 3 04/08/20 23 Active magnesium oxide (MAG-OX 400) 400 mg tabletIndications: Acute diastolic CHF (congestive heart failure) (HC) Take 1 Tablet (400 mg) by mouth once daily. 90 Tablet 1 04/16/20 23 Active LORazepam (ATIVAN) 1 mg tabletIndications: Anxiety Take 1 Tablet (1 mg) by mouth at bedtime. 60 Tablet 0 05/27/20 23 Active apixaban (Eliquis) 5 mg tabletIndications: Persistent atrial fibrillation (HC) Take 1 Tablet (5 mg) by mouth two times daily. 180 Tablet 3 06/27/20 23 Active irbesartan (Avapro) 300 mg tabletIndications: Essential hypertension Take 1 Tablet (300 mg) by mouth once daily. 90 Tablet 0 07/06/20 23 Active zolpidem (AMBIEN) 10 mg tabletIndications: Other insomnia Take 1 Tablet (10 mg) by mouth at bedtime. 90 Tablet 0 07/18/19 24 Active omeprazole (PRILOSEC) 20 mg Delayed-Release capsuleIndications :Gastroesophageal reflux disease with esophagitis without hemorrhage,Bradley 's esophagus with dysplasia Take 2 Capsules (40 mg) by mouth two times daily before meals. 360 Capsule 0 07/27/19 24 Active multivitamins-mine rals-lutein (Multivitamin 50 Plus) tab tablet Take 1 Tablet by mouth once daily. 0 Active loratadine (CLARITIN) 10 mg tabletIndications: Chronic rhinitis Take 1 Tablet (10 mg) by mouth once daily. 100 Tablet 4 08/05/19 24 Active MULTIVITAMIN TAB take 1 tablet by oral route once daily with food 0 10/10/19 08 024 Discontinued(Ph armacist change per medication history (E-cancel not sent)) loratadine (CLARITIN) 10 mg tabletIndications: Chronic rhinitis Take 1 Tablet (10 mg) by mouth once daily. 90 Tablet 3 10/14/19 23 024 Discontinued(Ph armacist change per medication history (E-cancel not sent)) omeprazole (PRILOSEC) 20 mg Delayed-Release capsuleIndications :Gastroesophageal reflux disease with esophagitis without hemorrhage,Bradley 's esophagus with dysplasia Take 2 Capsules (40 mg) by mouth two times daily before meals. 360 Capsule 3 10/14/19 23 024 Discontinued(Re order (E-cancel not sent)) zolpidem (AMBIEN) 10 mg tabletIndications: Other insomnia Take 1 Tablet (10 mg) by mouth at bedtime. 90 Tablet 1 10/14/19 23 024 Discontinued loratadine (Claritin) 10 mg tablet Take 10 mg by mouth once daily if needed for Allergy Symptoms. 0 024 Discontinued Active Problems Problem Noted Date Diagnosed Date Obesity, morbid 04/08/2023 Acute diastolic CHF (congestive heart failure) 0 09/01/2022 Chronic diastolic CHF (congestive heart failure) 08/06/2022 Chronic rhinitis 06/17/2022 Aortic aneurysm without rupt ure, unspecified portion of aorta 05/25/2022 Overview: His echocardiogram on 07/27/2022 showed his ascending aorta was 4.7 cm. The ascending aorta is dilated with a maximal diameter of 5.0 cm in 2020. 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 Colon polyps 09/08/2014 Overview: No polyps on 08/29/14 colonoscopy Repeat in 3 years Varicose veins 06/21/2014 Diverticulosis 06/21/2014 BPH (benign prostatic hypertrophy) with urinary obstruction 05/25/2013 Insomnia 04/26/2013 Impaired fasting glucose 02/25/2009 Esophageal reflux 10/10/2007 Overview: EGD 12/2010 hiatal hernia Unspecified essential hypertension Pure hypercholesterolemia Obesity, unspecified Encounters Date Type Department Care Team Description 08/10/2023 Telephone [facility] [address] [facility] [[email or web address] [address] [place] [phone] Makayla Franz MD Appointment 08/04/2023 Refill [facility] [address] [place] [address] Obinna Barragan MD Refill Request (Magnesium Oxide, Loratadine) 08/02/2023 1:45 PM AIX SYSTEM ADMINISTRATOR Anesthesia Event [facility] [address] [place] [address] Jesus Tony Jr., MD 08/02/2023 12:04 PM AIX SYSTEM ADMINISTRATOR - 08/03/2023 10:59 AM AIX SYSTEM ADMINISTRATOR Hospital Encounter [facility] [address] [place] [address] Makayla Franz MD Zupfer, Jesus Aaron Jr., Omar Maurer CRNA Persistent atrial fibrillation (HC) (Primary Dx); Gastroesophageal reflux disease with esophagitis without hemorrhage; Bradley's esophagus with dysplasia Discharge Disposition: Home Self Care 08/02/2023 Travel 07/26/2023 Refill [facility] [address] [place] [address] Obinna Barragan MD Refill Request (Omeprazole 20mg) 07/15/2023 Orders Only [facility] [address] [facility] [address] [place] [phone] Bar Elise MD <No scans attached> 07/13/2023 Refill [facility] [address] [place] [address] Obinna Barragan MD Refill Request (Zolpidem) 07/05/2023 Refill [facility] [address] [place] [address] Obinna Barragan MD Refill Request (Avapro 300mg) 06/27/2023 Refill [facility] [address] [place] [address] Obinna Barragan MD Refill Request 06/06/2023 Telephone [facility] [address] [phone] Rupa Butler RN EP follow-up/procedure 05/27/2023 Refill [facility] [address] [place] [address] Obinna Barragan MD Refill Request (Lorazepam) 05/25/2023 Nurse Triage [facility] [address] [place] [address] Obinna Barragan MD Eye Problem from Last 3 Months Immunizations Name Administration Dates Next Due COVID-19 vaccine (Pfizer-Bio NTech 30mcg/0.3mL) PF, MDV 07/01/2021,10/07/2020,09/16/2020 Influenza RIV4 (Age 18+ Years) PRESERV FREE 04/10,05/23/2019 Influenza, High-dose Inactivated 05/09/2016 Influenza, High-dose Quadriv alent Inactivated 05/21/2022,05/26/2021 Influenza, IIV3 (Age >=3 years) 04/12/2013,04/29,06/13/2006 Influenza, IIV4 06/08/2017,06/21/2014 Influenza, IIV4 (=>6mos) MDV 05/12/2018,05/27/20 16 Pneumococcal conj 13-Valent (Prevnar 13) 021,11/22/2018 Td (Age >=7 Years) 11/22/2018 Tdap 10/10/2007 Zoster (Zostavax-ZVL, live) 06/21/2014, 3 Family History Medical History Relation Name Comments Hypertension Brother 1 Other Brother 2 obese Alcohol/Drug Father Cancer Father lip CA from TOB Hyperlipidemia Father Other Father [place] at 55 y o Arthritis Mother Cancer-colon Mother dx at 85 Relation Name Status Comments Brother 1 Brother 2 Father (Age 56) Mother Alive Social History Tobacco Use Types Packs/Day Years Used Date Smoking Tobacco: Never Smokeless Tobacco: Never Tobacco Cessation:Counseling Given: Yes Alcohol Use Standard Drinks/Week Comments Not Currently 5 (1 standard drink = 0.6 oz pur e alcohol) occ PHQ-2 Answer Date Recorded PHQ-2 TOTAL SCORE 0 10/13/2022 Social Connections Answer Date Recorded Frequency of Communication with Friends and Fami ly Not on file 10/26/2022 Financial Resource Strain Answer Date R ecorded Difficulty of Paying Living Expenses 3 10/20/2021 Difficulty of Paying Living Expenses Not on file 10/20/2021 Food Insecurity Answer Date Recorded Worried About Running Out of Food in the Last Ye ar 1 10/20/2021 Transportation Needs Answer Date Record ed Lack of Transportation (Medical) 1 10/20/2021 Housing Stability Answer Date Recorded Unable to Pay for Housing in the Last Year 1 10/20/2021 Sex and Gender Information Value Date Recorded Sex Assigned at Not on file Gender Identity Not on file Sexual Orientation Not on file Obstetrics History Last Filed Vital Signs Vital Sign Reading Time Taken Comments Blood Pressure 129/83 08/03/2023 8:05 AM AIX SYSTEM ADMINISTRATOR Pulse 73 08/03/2023 8:05 AM AIX SYSTEM ADMINISTRATOR Temperature 36.6 ??C (97.8 ??F) 08/03/2023 8:05 AM CS T Respiratory Rate 16 08/03/2023 8:05 AM AIX SYSTEM ADMINISTRATOR Oxygen Saturation 96% 08/03/2023 8:05 AM AIX SYSTEM ADMINISTRATOR Inhaled Oxygen Concentration - - Weight 141.3 kg (311 lb 9.6 oz) 024 12:18 PM AIX SYSTEM ADMINISTRATOR Height 188 cm (6' 2) 08/02/2023 12:18 PM AIX SYSTEM ADMINISTRATOR Body Mass Index 40.01 08/02/2023 12:18 PM AIX SYSTEM ADMINISTRATOR Plan of Treatment Health Maintenance Due Date Last Done Comments Zoster (shingles) series for age 50+ (2 of 3) 08/16/2014 06/21/2014, 07/11/2012 Colonoscopy through age 75 08/29/201908/29, 12/14/2010, 12/14/2010 Pneumococcal series for age 65+ (2 of 2 - PPSV23 or PCV20) 11/03/2020 09/08/2020, 11/22/2018 COVID-19 vaccine series ( season) 2023 05/21/2022, 07/01/2021, 10/07/2020, Additional history exists Influenza for age 65+ 03/11/2023 05/21/2022 , 05/26/2021, 04/21/2020, Additional history exists Medicare Wellness for age 65+ 10/13/2023, 09/16/2021, 09/08/2020, Additional history exists Depression screening for age 12+ 10/14/2023 10/13/2022, 09/02/2022, 09/01/2022, Additional history exists BMI (ht and wt on same day) for age 18+ 04/08/2024 04/08/2023, 12/14/2022, 10/13/2022, Additional history exists Lipids for age 45-75 12/15/2027 12/14/2022, 10/06/2022, 08/31/2022, Additional history exists Tetanus booster 11/22/2028 11/22/2018, 10/10/2007 Tdap Completed 10/10/2007 Hepatitis C screening for ag e 18-79 Completed 08/01/2014 Procedures Procedure Name Priority Date/Time Associated Diagnosis Comments SCAN-CARDIAC STRIP 08/03/2023 8: 30 AM AIX SYSTEM ADMINISTRATOR EKG 12 LEAD Early AM 08/03/2023 5:54 AM AIX SYSTEM ADMINISTRATOR SCAN-CARDIAC STRIP 08/03/2023 3: 10 AM AIX SYSTEM ADMINISTRATOR SCAN-CARDIAC STRIP 08/02/2023 9: 46 PM AIX SYSTEM ADMINISTRATOR EKG 12 LEAD ROLF 08/02/2023 8:07 PM AIX SYSTEM ADMINISTRATOR HCHG ACTIVATED CLOTTING TM CV Timed 08/02/2023 5:25 PM AIX SYSTEM ADMINISTRATOR HCHG ACTIVATED CLOTTING TM CV Timed 08/02/2023 4:47 PM AIX SYSTEM ADMINISTRATOR HCHG ACTIVATED CLOTTING TM CV Timed 08/02/2023 4:03 PM AIX SYSTEM ADMINISTRATOR HCHG ACTIVATED CLOTTING TM CV Timed 08/02/2023 3:35 PM AIX SYSTEM ADMINISTRATOR HCHG ACTIVATED CLOTTING TM CV Timed 08/02/2023 3:04 PM AIX SYSTEM ADMINISTRATOR HCHG ACTIVATED CLOTTING TM CV Timed 08/02/2023 2:36 PM AIX SYSTEM ADMINISTRATOR EP STUDY /ABLATION Routine 08/02/2023 2: 14 PM AIX SYSTEM ADMINISTRATOR ENDOTRACHEAL TUBE Routine 08/02/2023 2:0 8 PM AIX SYSTEM ADMINISTRATOR ENDOTRACHEAL TUBE Routine 08/02/2023 2:0 8 PM AIX SYSTEM ADMINISTRATOR CBC W PLT NO DIFF Preop 08/02/2023 12: 30 PM AIX SYSTEM ADMINISTRATOR BASIC METABOLIC PANEL Preop 08/02/2023 12:30 PM AIX SYSTEM ADMINISTRATOR EKG 12 LEAD Preop 08/02/2023 12:18 PM AIX SYSTEM ADMINISTRATOR SCAN-CARDIAC STRIP 08/02/2023 12 :00 AM AIX SYSTEM ADMINISTRATOR from Last 3 Months Results * SCAN-CARDIAC STRIP (08/03/2023 8:30 AM AIX SYSTEM ADMINISTRATOR) Scanner OTHER * EKG (08/03/2023 5:54 AM AIX SYSTEM ADMINISTRATOR) Only the most recent of3 resultswithin the time period is included. Interpretation Sinus rhythm with 1st degree A-V block Cannot rule out Anterior infarct , age undetermined Abnormal ECG When compared with ECG of 02-AUG-2023 20:07, Premature atrial complexes are no longer Present Incomplete right bundle branch block is no longer Present BEYOND NOW Ventricular Rate 71 BPM BEYOND NOW Atrial Rate 71 BPM BEYOND NOW P-R Interval 214 ms BEYOND NOW QRS Duration 96 ms BEYOND NOW QT 366 ms BEYOND NOW QTc 397 ms BEYOND NOW P Acton 69 degrees BEYOND NOW R Acton 45 degrees BEYOND NOW T Acton 116 degrees BEYOND NOW 08/03/2023 5:54 AM AIX SYSTEM ADMINISTRATOR 08/03/2023 6:31 PM AIX SYSTEM ADMINISTRATOR Narrative BEYOND NOW - 08/03/2023 6:32 PM AIX SYSTEM ADMINISTRATOR Test Indication: NORMAL Makayla Franz MD EKG ORD BEYOND NOW [place], [place] * SCAN-CARDIAC STRIP (08/03/2023 3:10 AM AIX SYSTEM ADMINISTRATOR) Scanner OTHER * SCAN-CARDIAC STRIP (08/02/2023 9:46 PM AIX SYSTEM ADMINISTRATOR) Scanner OTHER * (ABNORMAL) ACTIVATED CLOTTING TIME [id number] ACT (08/02/2023 5:25 PM AIX SYSTEM ADMINISTRATOR) Only the most recent of6 resultswithin the time period is included. ACTIVATED CLOTTING TIME, POCT 158(H) 74 - 125 sec 08/02/2023 5:31 PM AIX SYSTEM ADMINISTRATOR [facility] Blood BLOOD SPECIMEN / Unknown 08/02/2023 5:25 PM AIX SYSTEM ADMINISTRATOR 08/02/2023 5:31 PM AIX SYSTEM ADMINISTRATOR Makayla Franz MD HEMATOLOGY [facility] [address] [place] [address], * EP STUDY /ABLATION (08/02/2023 2:14 PM AIX SYSTEM ADMINISTRATOR) Anatomical Region Laterality Modality X-Ray Angiograph y, X-Ray Angiography 08/02/2023 2:14 PM AIX SYSTEM ADMINISTRATOR Narrative Transcriptions Makayla Franz MD - 08/02/2023 4:51 PM CST [facility] Electrophysiology Procedure Report Name: LOUIE CONNOR Event Date: 08/02/2023 [facility] ID #: [id number] Date: 1955 Gender: Male Age: 67 LOVE #: [id number] Procedure Performed By: MAKAYLA FRANZ [facility] Referring Physician: Summary / Conclusions VASCULAR ACCESS * Using ultrasound guidance and a percutaneous technique, the rightfemoral vein was accessed. Ultrasound was used to confirm vessel patency,localizing needle into the lumen of the vessel. For safety purposes, apicture was saved for the medical record. ARRHYTHMIA * Persistent atrial fibrillation observed, with successful ablation. * Spontaneous typical atrial flutter with successful ablation. * Roof and floor lines to isolated the posterior wall for persistent AF. DISCUSSION * Complex Ablation: Persistent AF and AFL * ICE Catheter utilized during procedure. * Comment: Opening LA pressure 22mmHg Recommendations / Plan Preoperative Diagnosis: Persistent AtrialFibrillation Procedure: AF ablation Findings/Conclusions: Opening LA pressure 22mmHg Successful Pulmonary Vein Antrum Isolation fpr Persistent AF Additional linear ablation for AF persisting after PVI (floor line) Additional linear ablation for AF persisting after PVI and floor line(Roof line) Successful Posterior wall isolation DCC restored SR Burst pacing induced CTI dependent flutter CL 285ms) CTI ablation terminated the flutter with bidirectional block 230ms Postoperative Diagnosis: Same as preoperative diagnosis Complications: NA Personally monitored patient with conscious sedation during procedure:No Estimated Blood Loss: minimal Specimen: N/A Plan: Bedrest x 3 hours Pull sheaths when ACT < 180 Decadron 8mg IV given in lab Protamine 40mg IV given in lab Observe on telemetry overnight Protonix 40mg PO daily for two weeks Aspirin PO once today Resume home Rx Resume AC Follow up in [address] Franz Pre-Operative Diagnosis ? Atrial Fibrillation, Persistent ? Atrial Flutter Post-Operative Diagnosis ? Same as Pre-operative diagnosis Indications ? Same as Pre-operative diagnosis Brief Patient History Comments * 67-year-old gentleman with hypertension and morbid obesity has recurrentpersistent atrial fibrillation with poor ventricular response controlresulting in tachycardia mediated cardiomyopathy. He has been treatedwith rate control and anticoagulation strategy but is interested inpursuing nonpharmacologic rhythm control with ablation. He presents forthe procedure today. Morbid obesity complicates. His left ventricularend-diastolic pressure at the time of coronary angiography was 29 mmHg.Volume status also appears to be an issue. Will plan to check left atrialpressure today. Consent & [facility]ly Protocol W[place]ly protocol was followed. TIME OUT conducted just prior tostarting procedure confirmed patient identity, site/side, procedure,patient position, and availability of correct equipment and implants (ifapplicable). The risks, benefits, and alternatives of the procedure were discussed withthe patient and written informed consent was obtained. Procedure Description The patient was brought to the electrophysiology lab in a fasting stateand in persistent atrial fibrillation. General anesthesia was administered by the anesthesia service. Both groins were prepped and draped in the appropriate fashion. Under ultrasound guidance and local anesthetic, sheaths were placed in theRight Femoral Vein. Catheters were introduced into their appropriate locations in the heartunder ultrasound guidance. The intracardiac echo catheter was advanced into the right atrium and wasutilized to assist with the trans-septal puncture, for continuousmonitoring for effusion, as well as visualization of the catheter-tissueinterface within the left atrium. There was no evidence of LA Appendagethrombus. The ablation catheter was advanced to the RA via the Preface sheath andmapping was performed. The CTI was long and flat. Ablation was initiated at 40 james with 10-15g contact force and goodstability from the annulus back to the IVC. Ablation lesions were administered in a dense staggered fashion targetingan ablation index of 400 or an impedance drop of 12 Ohms - whicheveroccurred first - with lesion proximity of 3-4mm. After completion of the line I elected to move on to the LA and return tothe CTI at procedure end to measure the CTI times as the patient was stillin AF. Single transseptal puncture was performed under ICE guidance using aBrockenbrough needle through the Preface sheath. Transseptal puncture wasperformed under direct visualization using intracardiac echocardiogram,fluoroscopy, and agitated saline. Heparin was immediately given prior totransseptal access and patient was maintained on Heparin with an ACTbetween 300-350 seconds throughout the left atrial access. Using a ServiceBench Octaray catheter, a ResiModel irrigated tip catheter andLanternCRM 3-dimensional mapping system a geometry for the left atrium createdwith careful identification of the location of the pulmonary veins, thepulmonary vein antra, the ridge between the left pulmonary veins and theappendage, the mitral annulus as well as the left atrial appendage. There was moderate diffuse atrial myopathy with the predominance of thelow voltage concentrated at the PV antra and posterior wall. The location of the esophagus was identified using the esophageal mappingcatheter, and a thermistor. Continuous esophageal temperature monitoringaided in guiding lesion delivery. The esophagus was posterior to the LIPV and remote from the intendedlesion set. Catheter ablation was initiated at 90W for 4 seconds (QDOT+) on posteriorlesions and 50W for 10 seconds elsewhere. LCPV ablation resulted in LCPV isolation with entrance and exit blockdemonstrable with pacing for the remainder of the case. Next the RSPV was targeted with ablation beginning at the roof and carriedposteriorly to the floor then up the anterior septum to completion at theroof. After isolation of the RPV complex, I administered roof and floor lineswith staggered lesions on the roof at ablation index of 450 and QDOT+lesions on the floor. The posterior LA was electrically silent and isolated. DCC restored SR. Burst pacing induced Typical atrial flutter CL 285. Mapping confirmed the LA was a bystander. The Preface sheath and the ablation catheter were withdrawn from the leftatrium. Mapping revealed an area of signal leak across the previously administeredCTI line. The flutter terminated while mapping this location. Ablation in this location resulted in bidirectional block. Normal HV Opening LA pressure 22mmHg. Comprehensive electrophysiology study was performed as detailed in theCardiodoc document and in the EP study details listed below. There was noevidence of dual AV node physiology or accessory pathway. After a waiting period and reconfirming bidirectional block across the PVlesionsets, all the catheters were withdrawn from the vasculature and thepatient was given protamine to reverse the heparin effect. There was noevidence of pericardial effusion on intracardiac echo at procedure end.Patient was transferred to the recovery area where the sheaths will beremoved. COMPLICATIONS There were no obvious complications observed. Electrophysiology Study Data Basic Intervals Study State Underlying Rhythm Cycle Length CO PA AH HV QRS Acton QRSMorphology Baseline NSR [id number] Post Ablation NSR 905 189 Ablation Data Atrial Fibrillation Energy Source Ablation Catheter Used Rhythm During Ablation # of AttemptsMax James Max Temp. Result RF Q-Dot D-F curve NSR 126 90 28 Success Esophageal Baseline Temp: 36.4o C Esophageal Peak Temp: 36.6o C Max Temp Increase During Ablation: .2o C Left atrial lesion sets were placed. The left inferior pulmonary vein was isolated. The left superior pulmonary vein was isolated. The right inferior pulmonary vein was isolated. The right superior pulmonary vein was isolated. A circumferential lesion set was placed around the right pulmonaryveins. A circumferential lesion set was placed around the left pulmonary veins. A lesion set was placed across the left atrial roofline. Comments: Total Ablation Time: 1117 seconds Atrial Flutter Energy Source Ablation Catheter Used Rhythm During Ablation # of AttemptsMax James Max Temp. Result RF EZ Steer ThermoCool, 3.5mm NSR 14 40 23 Success Cavotricuspid isthmus ablation was performed. (Pre) (Post) CS-ABL Site: 187 Catheter Use Catheter Type Catheter Description Insertion Site Intracardiac Site SheathSize Sheath Type Sheath Description Diagnostic SoundStar 3D Diagnostic Ultrasound Catheter Right Femoral VeinRA 9 Fr. Standard Sidearm Diagnostic EsophaStar Esophageal Mapping Catheter, 125 cm EsophagusEsophagus Diagnostic/Map DecaNav F-Curve Decapolar 2-8-2 spacing Right Femoral VeinCS 7 Fr Standard Sidearm Diagnostic Level 1 Esophageal/Rectal Temperature Probe Esophagus Esophagus Ablation Q-Dot D-F curve Right Femoral Vein Map/Abl 8 Fr. Guide Preface Diagnostic/Map Octaray F curve Right Femoral Vein Map/Abl 8 Fr. GuidePreface Procedure(s) Performed ? A Fib/PV Isolation Ablation ? Intracardiac Echocardiography ? Site-Rite Ultrasound used for vascular access ? 3D Mapping ? Ablation of Separate Mechanism of Tachychardia ? A Fib Additional linear/focal ablation RA/LA Auxiliary Device Intracardiac Echo Used: Yes Mapping System 1: Carto Procedure Detail Estimated Blood Loss: < 50 ml Specimen Collected: None Level of Sedation Achieved: See Anesthesia Note Total Flouro Time: 0 EPIDEMIOLOGY INTERN Total Flouro Dose: 0 mGy Transseptal Mean LA Pressure: 22 mmHg Staff Name Role Makayla Franz Traffic Expert Dewayne Brown RN Nurse Mell Bundy CVT Monitor Mehran Lima EPT Monitor Seth Irving EPT Corporate Counsel Ortberg, Wei CVT Scrub GoepPrashanth bowman EPT Corporate Counsel Medications Ordered and Administered Start Time Stop Time Medication Dose Units Route Ordered By Given By 14:15 0.25% Bupivicaine 5 mL Subcut MD Makayla Portillo MD 14:15 1% Lidocaine Hydrochloride 5 mL Subcut MD Makayla Portillo MD 14:24 Heparin 71243 Units IV MD Dewayne Portillo RN 14:44 Heparin 3000 Units IV MD Dewayne Portillo, MARIAM 15:11 Heparin 1000 Units IV MD Dewayne Portillo, MARIAM 15:41 Heparin 3000 Units IV MD Dewayne Portillo, MARIAM 16:06 0.5% Bupivicaine 5 mL Subcut MD Makayla Portillo MD 16:06 1% Lidocaine Hydrochloride 5 mL Subcut MD Makayla Portillo MD 16:09 Protamine 40 Mg IV MD Dewayne Portillo, MARIAM The anesthesia service monitored the patient?s conscious sedation duringthe procedure. The medications listed above were verbally ordered by me and read back tome as documented above. Refer to the hemodynamic procedure log report for additional casedetails. electronically signed on 08/02/2023 4:51:06 PM with status of Final Makayla Franz MD Traffic Expert [facility] [address] [place] [address] (p) [phone](f) Images 08/02/2023 4:50:21 PM Makayla Franz MD CV IMAGING * HCHG TUBE PR1, HCHG STYLET PR1 (08/02/2023 2:08 PM AIX SYSTEM ADMINISTRATOR) Narrative Omar Preston, TAP GRINDER - 08/02/2023 2:08 PM AIX SYSTEM ADMINISTRATOR Omar Preston, TAP GRINDER ? 08/02/2023 ??2:09 PM Procedure: ETT Patient location during procedure: OR ETT Properties Mask Ventilation: not attempted Final Technique: direct laryngoscopy Type: straight Location: oral Cuffed: yes Tube Size: 7.5 mm Stylet: yes Laryngoscope Blade: Jiang Blade Size: 2 Cormack-Lehane Grade View: 1 Insertion Attempts: 1 Placement Verification: auscultation, end tidal CO2 and symmetrical chest wall movement Assessment: pharynx clear, atraumatic and dentition unchanged Secured at: 23 Measured From: lips Difficulty: 0 (not difficult) Jesus Tony Jr., MD ANESTHESIA PX NOTE ORDERABLES * (ABNORMAL) CBC with Platelet no Diff (08/02/2023 12:30 PM AIX SYSTEM ADMINISTRATOR) WHITE BLOOD COUNT 6.8 4.5 - 11.0 thou/cu mm 08/02/2023 12:54 PM AIX SYSTEM ADMINISTRATOR [facility] RED BLOOD COUNT 4.13(L) 4.30 - 5.90 mil/cu mm 08/02/2023 12:54 PM AIX SYSTEM ADMINISTRATOR [facility] HEMOGLOBIN 13.3(L) 13.5 - 17.5 g/dL 08/02/2023 12:54 PM AIX SYSTEM ADMINISTRATOR [facility] HEMATOCRIT 39.4 37.0 - 53.0 % 08/02/2023 12:54 PM AIX SYSTEM ADMINISTRATOR [facility] MCV 95 80 - 100 fL 08/02/2023 12:54 PM AIX SYSTEM ADMINISTRATOR [facility] MCH 32.2 26.0 - 34.0 pg 08/02/2023 12:54 PM AIX SYSTEM ADMINISTRATOR [facility] MCHC 33.8 32.0 - 36.0 g/dL 08/02/2023 12:54 PM [facility] RDW 12.5 11.5 - 15.5 % 08/02/2023 12:54 PM [facility] PLATELET COUNT 156 140 - 440 thou/cu mm 08/02/2023 12:54 PM [facility] MPV 9.1 6.5 - 11.0 fL 08/02/2023 12:54 PM [facility] NRBC 0.0 % 08/02/2023 12:54 PM [facility] ABS NRBC 0.0 thou /cu mm 08/02/2023 12:54 PM [facility] Blood BLOOD SPECIMEN / Unknown Venipuncture / Unknown 08/02/2023 12:30 PM AIX SYSTEM ADMINISTRATOR 08/02/2023 12:44 PM AIX SYSTEM ADMINISTRATOR Makayla Franz MD HEMATOLOGY [facility] [address] [place] [address], * (ABNORMAL) Basic Metabolic Panel (08/02/2023 12:30 PM AIX SYSTEM ADMINISTRATOR) SODIUM 137 136 - 145 mmol/L 08/02/2023 1:43 PM [facility] POTASSIUM 4.1 3.5 - 5.1 mmol/L 08/02/2023 1:43 PM [facility] CHLORIDE 102 98 - 107 mmol/L 08/02/2023 1:43 PM [facility] CO2,TOTAL 24 22 - 29 mmol/L 08/02/2023 1:43 PM [facility] ANION GAP 11 5 - 18 08/02/2023 1:43 PM [facility] GLUCOSE 115(H) 70 - 99 mg/dL 08/02/2023 1:43 PM [facility] CALCIUM 9.3 8.8 - 10.2 mg/dL 08/02/2023 1:43 PM [facility] BUN 23 8 - 23 mg/dL 08/02/2023 1:43 PM AIX SYSTEM ADMINISTRATOR [facility] CREATININE 0.95 0.70 - 1.20 mg/dL 08/02/2023 1:43 PM AIX SYSTEM ADMINISTRATOR [facility] BUN/CREAT RATIO 24(H) 10 - 20 1:43 PM AIX SYSTEM ADMINISTRATOR [facility] eGFR 87(L) >90 mL/min/1.7 3m2 08/02/2023 1:43 PM AIX SYSTEM ADMINISTRATOR [facility] Comment:As of 2021, eG FR is calculated by the CKD-EPI creatinine equation without race adjustment. ??eGFR can be influenced by muscle mass, exercise, and diet. ??The reported eGFR is an estimation only and is only applicable if the renal function is stable. Blood BLOOD SPECIMEN / Unknown Venipuncture / Unknown 08/02/2023 12:30 PM AIX SYSTEM ADMINISTRATOR 08/02/2023 12:44 PM AIX SYSTEM ADMINISTRATOR Makayla Franz MD [facility]Y [facility] [address] [place] [address], * SCAN-CARDIAC STRIP (08/02/2023 12:00 AM AIX SYSTEM ADMINISTRATOR) Narrative 08/02/2023 12:00 AM AIX SYSTEM ADMINISTRATOR Ordered by an unspecified provider. Other Clinical Staff OTHER from Last 3 Months Advance Directives Latest Code Status on File Code Status Date Activated Date Inactivated Comments Full Code 08/02/2023 4:25 PM 08/03/2023 1:09 PM Question Answer Comments Code Status Discussion: Not Discussed Code Status History Code Status Date Activated Date Inactivated Comments Full Code 12/21/2022 8:39 AM 12/21/2022 2:54 PM Question Answer Comments Code Status Discussion: Reviewed Preferences Full Code 10/21/2020 12:01 PM 10/21/2020 4:58 PM Question Answer Comments Code Status Discussion: Not Discussed Care Teams Hadoop Application Developer Relationship Specialty Start Date End Date Obinna Barragan MD [address] [facility] [id number] PCP - General Family Practice 06/17/22
[2023-08-12] MEDS: 0.9 % SODIUM CHLORIDE 1000 ml 1,000 ML IV (11:40)
--- NOTE | 2023-08-12 11:41 | ED_ITS ---
HPI - General Adult General Chief complaint: Arrhythmia/Palpitations Stated complaint: AFIB Time Seen by Provider: 08/12/23 11:13 Source: patient Mode of arrival: ambulatory Limitations: no limitations History of Present Illness HPI narrative: 67-year-old male with history of atrial fibrillation status post ablation 10 days ago presents today in atrial fibrillation. Patient states that he felt his heart go back into AFib last night. This morning he checked his pulse it was 150 so he came into the ER. He denies feeling short of breath. He is not having any chest pain. He states that if he stands up too fast he gets a little lightheaded but that only lasts a few seconds. He denies any nausea or vomiting. Appetite is unchanged. Patient is already on Eliquis, metoprolol 50 mg p.o. b.i.d., Avapro 300 mg daily. Related Data Home Medications Medication Instructions Recorded Confirmed amlodipine 5 mg tablet 5 mg PO DAILY 04/21/22 07/26/22 apixaban 5 mg tablet (Eliquis) 5 mg PO BID 04/21/22 07/26/22 atenolol 50 mg tablet 50 mg PO BID 04/21/22 07/26/22 irbesartan 300 mg tablet 300 mg PO DAILY 04/21/22 07/26/22 lorazepam 1 mg tablet 1 mg PO BID PRN 04/21/22 07/26/22 omeprazole 20 mg capsule,delayed 20 mg PO BID 04/21/22 07/26/22 release terazosin 5 mg capsule 10 mg PO HS 04/21/22 07/26/22 zolpidem 10 mg tablet 10 mg PO HS 04/21/22 07/26/22 fluticasone propionate 50 1 spray intranasal DAILY PRN 07/26/22 07/26/22 mcg/actuation nasal spray,suspension montelukast 10 mg tablet 10 mg PO HS 07/26/22 07/26/22 Previous Rx's Medication Instructions Recorded furosemide 20 mg tablet 60 mg (3 x 20 mg) PO DAILY@0800 30 07/28/22 days #90 tabs magnesium oxide 400 mg (241.3 mg 400 mg PO DAILY #30 tabs 07/28/22 magnesium) tablet potassium chloride 10 mEq 20 meq (2 x 10 mEq) PO BIDWM 30 07/28/22 capsule,extended release days #60 caps diltiazem HCl 120 mg 120 mg PO BID #60 caps 08/12/23 capsule,extended release 12 hr Allergies Allergy/AdvReac Type Severity Reaction Status Date / Time atorvastatin Allergy Verified 07/26/22 15:04 lisinopril Allergy Verified 07/26/22 15:04 Review of Systems Status of ROS: Reports: 10 or more systems reviewed and unremarkable except as noted in History and below [facility] Medical History GERD (gastroesophageal reflux disease) ?K21.9 - Gastro-esophageal reflux disease without esophagitis (ICD-10) Cardiac arrhythmia ?I49.9 - Cardiac arrhythmia, unspecified (ICD-10) Elevated cholesterol ?E78.00 - Pure hypercholesterolemia, unspecified (ICD-10) Hypertension ?I10 - Essential (primary) hypertension (ICD-10) Atrial flutter with rapid ventricular response ?I48.92 - Unspecified atrial flutter (ICD-10) Surgical History Status post right hip replacement (11/05/21) ?Z96.641 - Presence of right artificial hip joint (ICD-10) Social History Smoking Status: Never smoker Do you use any of these nicotine containing products: None Second hand tobacco smoke exposure: No How often do you have a drink containing alcohol: 2-3 times a week How many standard drinks containing alcohol do you have on a typical day: 3 or 4 How often do you have six or more drinks on one occasion: Less than monthly AUDIT-C Alcohol total score: 5 Non-prescribed substance use: denies use service: No Exam Narrative: Exam Narrative: Upon presentation patient's pulse fluctuates between the upper 80s to the low 100s. Obese, well-developed patient in no acute distress. Alert and oriented. Answers questions appropriately. Mood and affect are appropriate. Thoughts are goal oriented and rational. No tangential or magical thinking noted. Patient speaks in full sentences without needing to catch his breath. HEENT: Normocephalic atraumatic. Pupils are equally round reactive to light. Extraocular muscles are intact. Conjunctivae are moist without any icterus noted. Moist mucous membranes. Cardiovascular: Irregularly irregular. Lungs: Clear to auscultation bilaterally no wheezes rhonchi or rales are appreciated. Patient takes deep breaths without any discomfort. Abdomen: Soft and nontender, current, nondistended with normal bowel sounds. Extremities: Bilateral lower extremities are without edema. Skin: Well perfused without any obvious rashes. Const: Vital Signs, click to edit/add: Vital Signs - 24 hr 08/12/23 11:04 08/12/23 11:11 08/12/23 11:25 Temperature 97.8 F Pulse Rate 76 Pulse Rate [Right Pulse Oximeter] 111 H Respiratory Rate 20 Blood Pressure Blood Pressure [Ri ght Upper Arm] 105/84 Pulse Oximetry 95 95 96 Oxygen Delivery Me thod Room Air 08/12/23 11:31 08/12/23 11:32 08/12/23 11:33 Temperature Pulse Rate 79 59 L 60 Pulse Rate [Right Pulse Oximeter] Respiratory Rate Blood Pressure 88/71 L 94/78 Blood Pressure [Ri ght Upper Arm] Pulse Oximetry 98 97 97 Oxygen Delivery Me thod 08/12/23 11:48 08/12/23 12:00 08/12/23 12:01 Temperature Pulse Rate 72 68 71 Pulse Rate [Right Pulse Oximeter] Respiratory Rate Blood Pressure 109/68 100/70 Blood Pressure [Ri ght Upper Arm] Pulse Oximetry 96 94 96 Oxygen Delivery Me thod 08/12/23 12:15 Temperature Pulse Rate 69 Pulse Rate [Right Pulse Oximeter] Respiratory Rate Blood Pressure 114/79 Blood Pressure [Ri ght Upper Arm] Pulse Oximetry 98 Oxygen Delivery Me thod Course Course ED Course: EKG, read by me, shows atrial fibrillation with a pulse of 115, incomplete right bundle-branch block. Patient was given a L of normal saline and 20 mg of IV Cardizem. Pulse went down into the 70s, however he remained in atrial fibrillation. Blood pressure fluctuated, average in the 1 teens systolic. I did speak to Dr. Jones, production artist at [facility], who recommended that we cut his Avapro in half and add diltiazem to his daily regimen. Patient remained hemodynamically stable and asymptomatic while he was here. Vital Signs Vital signs: Initial Vital Signs Temperature 97.8 F 08/12/23 11:04 Temperature Source Temporal Artery Scan 08/12/23 11:04 Pulse Rate 111 H 08/12/23 11:04 Pulse Rhythm Irregular 08/12/23 11:04 Respiratory Rate 20 08/12/23 11:04 Blood Pressure 105/84 08/12/23 11:04 Blood Pressure Mean 91 08/12/23 11:04 Blood Pressure Position Sitting 08/12/23 11:04 Pulse Oximetry 95 08/12/23 11:04 Oxygen Delivery Method Room Air 08/12/23 11:04 Vital Signs Temperature 97.8 F 08/12/23 11:04 Pulse Rate 111 H 08/12/23 11:04 Respiratory Rate 20 08/12/23 11:04 Blood Pressure 105/84 08/12/23 11:04 Pulse Oximetry 95 08/12/23 11:04 Oxygen Delivery Method Room Air 08/12/23 11:04 Temperature 97.8 F 08/12/23 11:04 Pulse Rate 69 08/12/23 12:15 Respiratory Rate 20 08/12/23 11:04 Blood Pressure 114/79 08/12/23 12:15 Pulse Oximetry 98 08/12/23 12:15 Oxygen Delivery Method Room Air 08/12/23 11:04 Medications Administered Medications: Discontinued Medications Generic Name Dose Route Start Last Admin Trade Name Freq PRN Reason Stop Dose Admin Diltiazem HCl 20 mg 08/12/23 11:25 08/12/23 11:45 Diltiazem 5 Mg/Ml Inj IVP 08/12/23 11:26 20 mg ONCE ONE Administration Sodium Chloride 1,000 mls @ 1,000 mls/hr 08/12/23 11:30 08/12/23 12:16 0.9 % Sodium Chloride 1000 Ml IV 08/12/23 12:29 Infused .Q1H PANFILO Infusion Medical Decision Making MDM Narrative Medical decision making narrative: [age] year male with atrial fibrillations, status post ablation. Plan per above. ECG Data Attestation: I personally reviewed and interpreted this ECG as follows: Discharge Plan Discharge Clinical Impression: Atrial fibrillation Patient Disposition: Home, Self-Care Condition: Stable Additional Instructions: Cut your Avapro (Irbesartan) in half and only take 150 mg daily. Continue metoprolol as prescribed. Start twice daily Cardizem. A new prescription has been sent to your pharmacy. Follow-up with your primary care provider in 1 week and have a repeat EKG done. Return to the ER if you feel short of breath or develops chest pain. Prescriptions: New diltiazem HCl 120 mg capsule,extended release 12 hr 120 mg PO BID Qty: 60 0RF No Action Eliquis 5 mg tablet 5 mg PO BID Patient Comments: TAKE ONE TABLET BY MOUTH TWICE DAILY amlodipine 5 mg tablet 5 mg PO DAILY Patient Comments: TAKE ONE TABLET BY MOUTH ONE TIME DAILY atenolol 50 mg tablet 50 mg PO BID Patient Comments: TAKE ONE TABLET BY MOUTH TWICE DAILY irbesartan 300 mg tablet 300 mg PO DAILY Patient Comments: TAKE ONE TABLET BY MOUTH ONE TIME DAILY lorazepam 1 mg tablet 1 mg PO BID PRN Patient Comments: Take 1 Tablet (1 mg) by mouth 2 times daily if needed for Anxiety or Sleep. omeprazole 20 mg capsule,delayed release(DR/EC) 20 mg PO BID Patient Comments: TAKE TWO CAPSULE BY MOUTH TWICE DAILY BEFORE MEALS terazosin 5 mg capsule 10 mg PO HS Patient Comments: TAKE TWO CAPSULE BY MOUTH DAILY AT BEDTIME zolpidem 10 mg tablet 10 mg PO HS Patient Comments: TAKE ONE TABLET BY MOUTH ONE TIME DAILY AT BEDTIME fluticasone propionate 50 mcg/actuation spray,suspension 1 spray intranasal DAILY PRN Rx Instructions: administer into each nostril montelukast 10 mg tablet 10 mg PO HS Patient Comments: TAKE ONE TABLET BY MOUTH AT BEDTIME magnesium oxide 400 mg (241.3 mg magnesium) Tablet 400 mg PO DAILY Qty: 30 0RF furosemide 20 mg Tablet 60 mg PO DAILY@0800 30 Days Qty: 90 1RF potassium chloride 10 mEq Capsule, Extended Release 20 meq PO BIDWM 30 Days Qty: 60 1RF Follow Up/Referrals: Obinna Barragan MD [Primary Care Provider] - Stand Alone Forms: [facility] Info Instructions
[2023-08-12] MEDS: dilTIAZem 5 MG/ML inj 20 MG IVP (11:45)
== END 2023-08-12 12:51 | disposition home or self-care (01) ==
PROVIDERS: Emergency Provider Family Medicine; PCP Family Medicine
DX: I48.91 Unspecified atrial fibrillation (principal)
CPT/HCPCS: 93005; 94761; 96374; 99284; J7030

== ENCOUNTER 2024-11-29 06:30 | Outpatient (CLI) | payer MEDICARE, BC, SELFPAY ==
--- NOTE | 2024-11-29 08:38 | P.ANES_ITS ---
Anesthesia Charges Start Date/Time Anesthesia Start Date: 11/29/24 Anesthesia Start Time: 07:15 Stop Date/Time Anesthesia Stop Date: 11/29/24 Anesthesia Stop Time: 08:36 Summary Extremes of Age - Over 70 or under 1: MDA Coding CPT Codes CPT Codes: ANES UPR LWR GI NDSC PX - 40109 ([id number]) P3 - PATIENT W/SEVERE SYS DISEASE, QK - COMPRESSOR OPERATOR ADJUSTER 2-4 CNCRNT ANES PROC, QX - TUB WASHER SVC W/ MD MED DIRECTION Additional Codes: Summary - Extremes of Age - Over 70 or under 1: MDA ([id number])
--- NOTE | 2024-11-29 08:38 | W.ANESCHARGE ---
Anesthesia Charges Start Date/Time Anesthesia Start Date: 11/29/24 Anesthesia Start Time: 07:15 Stop Date/Time Anesthesia Stop Date: 11/29/24 Anesthesia Stop Time: 08:36 Summary Extremes of Age - Over 70 or under 1: MDA Coding CPT Codes CPT Codes: ANES UPR LWR GI NDSC PX - 76286 ([id number]) P3 - PATIENT W/SEVERE SYS DISEASE, QK - NURSE PRACTITIONER 2-4 CNCRNT ANES PROC, QX - GIZZARD PEELER SVC W/ MD MED DIRECTION Additional Codes: Summary - Extremes of Age - Over 70 or under 1: MDA ([id number])
--- NOTE | 2024-11-29 08:40 | P.ANES_ITS ---
Anesthesia Charges Start Date/Time Anesthesia Start Date: 11/29/24 Anesthesia Start Time: 07:15 Stop Date/Time Anesthesia Stop Date: 11/29/24 Anesthesia Stop Time: 08:36 Coding CPT Codes CPT Codes: ANES UPR LWR GI NDSC PX - 17249 ([id number]) P3 - PATIENT W/SEVERE SYS DISEASE, QK - FRANKFURTER INSPECTOR 2-4 CNCRNT ANES PROC, QX - AUTO MECHANIC SUPERVISOR SVC W/ MD MED DIRECTION
--- NOTE | 2024-11-29 08:40 | W.ANESCHARGE ---
Anesthesia Charges Start Date/Time Anesthesia Start Date: 11/29/24 Anesthesia Start Time: 07:15 Stop Date/Time Anesthesia Stop Date: 11/29/24 Anesthesia Stop Time: 08:36 Coding CPT Codes CPT Codes: ANES UPR LWR GI NDSC PX - 89845 ([id number]) P3 - PATIENT W/SEVERE SYS DISEASE, QK - NURSING PROJECT COORDINATOR 2-4 CNCRNT ANES PROC, QX - SENIOR HR MANAGER SVC W/ MD MED DIRECTION
== END 2024-11-29 06:31 | disposition home or self-care (01) ==
LOC: OP CLINIC 06:31
PROVIDERS: PCP Family Medicine; Visit Provider Surgery
DX: Z12.11 Encounter for screening for malignant neoplasm of colon (principal); Z86.0109 Personal history of other colon polyps; K22.70 Barrett's esophagus without dysplasia; K22.89 Other specified disease of esophagus; D12.0 Benign neoplasm of cecum; D12.2 Benign neoplasm of ascending colon; D12.5 Benign neoplasm of sigmoid colon; K64.8 Other hemorrhoids; K57.30 Diverticulosis of large intestine without perforation or abscess without bleeding
CPT/HCPCS: 00813; 43239; 45385; 88305; 99100; J2704; J3010